=== PATIENT | male | born 1940 | race African-American/Black ===

== ENCOUNTER 2019-03-07 12:44 | Inpatient (IN) | payer OTHER ==
[~2019-03-07 12:44] MED LIST: ISOVUE-370 76%-LOCM 1 ML ONE
[2019-03-07 13:18] LABS: #Basophils 0.1 thou/uL (0.0-0.2); #Lymphocytes 0.6 thou/uL (1.20-3.40); #Monocytes 0.9 thou/uL (0.11-0.59); #Neutrophils 7.2 thou/uL (1.40-6.50); %Basophils 0.6 % (0.0-1.0); %Eosinophils 0.3 % (0.0-10.0); %Lymphocytes 7.1 % (21.0-51.0); Hemoglobin 9.2 g/dL (14.0-18.0); Mean Corpuscular HGB CONC 27.6 g/dL (32.0-36.0); Mean Corpuscular Hemoglobin 19.1 pg (27.0-31.0); Mean Platelet Volume 5.5 fL (7.4-10.4); Platelet Count 396 thou/uL (130-400); RBC Distribution Width 25.3 % (11.5-14.5); Red Blood Cell (RBC) Count 4.83 mill/uL (4.70-6.10); White Blood Cell (WBC) Count 8.8 thou/uL (4.8-10.8)
[2019-03-07] MEDS ORDERED: Ondansetron PF 4 MG/2 ML Vial ONE (13:21)
[2019-03-07] MEDS ORDERED: Fentanyl 100 MCG/2 ML VIAL ONE (13:21)
[2019-03-07 13:39] LABS: ALT (SGPT) 97 U/L (8-55); AST (SGOT) 53 U/L (5-34); Albumin 3.7 g/dL (3.4-4.8); Alkaline Phosphatase 135 U/L (40-150); Anion Gap 12 mmol/L (10-20); BUN (Urea Nitrogen) 17 mg/dL (8.4-25.7); Bilirubin, Total 0.4 mg/dL (0.2-1.2); Calc. Creatinine Clearance 0 mL/min (70-130); Carbon Dioxide 22 mmol/L (23-31); Chloride 107 mmol/L (98-107); Estimated GFR-MDRD Greater than 90; Globulin 3.3 g/dL (2.4-3.5); Glucose 192 mg/dL (83-110); Lipase 4 U/L (8-78); Potassium 4.4 mmol/L (3.5-5.1); Sodium 137 mmol/L (136-145)
--- NOTE | 2019-03-07 13:46 | RAD ---
PORTABLE CHEST: DATE: 03/07/2019. PROVIDED CLINICAL HISTORY: Hypoxia. FINDINGS: No comparisons. Cardiac silhouette appears enlarged which may be at least partially on the basis of portable technique. Vascular calcification involves the aortic arch. Left greater than right basila r pleural parenchymal opacity. Prominence of the pulmonary vasculature and pulmonary interstitium. No evidence for pneumothorax. IMPRESSION: Cardiomegaly and findings suggesting congestive failure. Bibasilar left greater than right pleural p arenchymal opacity may reflect effusions with adjacent atelectasis versus superimposed infection. Fo llowup is recommended. POS: OFF
[2019-03-07 13:50] LABS: Anisocytosis MODERATE=16-30 cells (100X) (0-5/hpf); Hypochromia MODERATE=16-30 cells (100X) (0-5/hpf); Large Platelets SLIGHT; MDiff Complete? YES; Microcytosis SLIGHT = 6-15 cells (100X) (0-5/hpf); Ovalocytes SLIGHT = 2-5 cells (100X) (0-1/hpf); Platelet Morphology Comment Appears Adequate; Polychromasia SLIGHT = 2-3 cells (100X) (0-2/hpf); Reflex for Review?? YES; Schistocytes SLIGHT = 2-5 cells (100X) (0-1/hpf); Spherocytes SLIGHT = 1-5 cells (100X) (None Seen); Target Cells SLIGHT = 2-5 cells (100X) (0-1/hpf)
--- NOTE | 2019-03-07 14:32 | CT ---
CT ABDOMEN AND PELVIS: HISTORY: Left-sided abdominal pain. FINDINGS: Contrast-enhanced CT images of the abdomen and pelvis were obtained after administration of IV contra st. Oral contrast was not given. Moderate-sized bilateral pleural effusions seen. No evidence of free intraperitoneal air is seen. There is a 1.5 cm hypodense area along the anterior aspect of the right hepatic lobe. A more subtle smaller lesion is also seen in the left hepatic lobe measuring approximately 8 mm. These may represe nt hepatic cysts or masses including metastatic disease. The gallbladder is unremarkable. There are numerous dilated loops of small bowel. Some of these have herniated into a large left ingu inal hernia extending into the scrotal sac. This results in proximal left-sided small bowel obstruct ion. Multilevel lumbar degenerative change is seen. IMPRESSION: 1. Large left inguinal hernia with small bowel herniation and obstruction. Surgical consultation is recommended. 2. Bilateral pleural effusions. 3. Hypodense area seen in the liver. These may represent hepatic cysts or masses. POS: [facility]
[2019-03-07] MEDS ORDERED: Morphine 4 MG/ML VIAL ONE (14:49)
[2019-03-07 16:43] LABS: Lactic Acid 2.1 mmol/L (0.5-2.2)
[2019-03-07] MEDS ORDERED: Furosemide 40 MG/4 ML VIAL ONE (19:15)
[2019-03-07] MEDS ORDERED: Ondansetron ODT 4 MG TAB PO PRN (22:20)
[2019-03-07] MEDS ORDERED: Ondansetron PF 4 MG/2 ML Vial IVP PRN (22:20)
[2019-03-07] MEDS ORDERED: Dextrose 5% in Water 1,000 ML IV PRN (22:22)
[2019-03-07] MEDS ORDERED: Dextrose 50% Abboject 50 ML SYRINGE SLOW IVP PRN (22:22)
[2019-03-07 22:47] VITALS: BMI 20.2
--- NOTE | 2019-03-08 02:43 | HP ---
PRIMARY CARE DOCTOR: The patient is in skilled nursing. CODE STATUS: Full code. TIME OF EVALUATION: 8:30 p.m. CHIEF COMPLAINT: Abdominal pain. HISTORY OF PRESENT ILLNESS: Information has been gathered from the nursing staff since the patient is noncooperative. He is confused. The patient was brought in to the hospital from correctional facility since the patient was having episodes of hypoxia, also having irregular heartbeats, no clear triggers, no alleviating factors. Reportedly, this was his first episode. Symptoms were moderate, gradual onset. Symptoms were getting worse with change in positions. REVIEW OF SYSTEMS: Unable to obtain. The patient is noncooperative to interview. KNOWN ALLERGIES: No known drug allergies. FAMILY HISTORY: Reviewed and noncontributory for current presentation. REPORTED MEDICATIONS: 1. Aspirin. 2. Iron. 3. Omeprazole. 4. Lisinopril. 5. Novolin. PHYSICAL EXAMINATION: VITAL SIGNS: On presentation, blood pressure 142/91 with heart rate 112, respiratory rate was 17, temperature 97.7, pain 8/10, oxygen saturation was 98% on room air. GENERAL APPEARANCE: The patient is alert, disoriented, not in acute distress. HEENT: Eyes, normal conjunctivae. Dry oral mucosa. Anicteric. No JVD. RESPIRATORY: The patient has decreased air entry. The patient has bilateral rales. No wheezing. CARDIOVASCULAR: Normal rate, regular rhythm. No murmurs. No gallop. Bilateral leg edema. ABDOMEN: Soft. Normal bowel sounds. MUSCULOSKELETAL: Baseline range of motion and strength. No tenderness. SKIN: Warm, intact. No pallor. No rash. No redness. Peripheral pulses are present. Capillary refill seems to be intact. NEUROLOGICAL: No evidence of any new focal weakness. Baseline speech. Cranial nerves seems to be intact. PSYCHIATRIC: The patient has good mood. No anxiety. Suboptimal judgment. IMAGING STUDIES: EKG was reviewed. The patient has sinus tachycardia with PACs , nonspecific T-wave abnormalities, ventricular rate 111, SC 144, QRS 88, QT corrected 454. LABORATORY DATA: Reviewed. White count 8.8, hemoglobin 9.2, platelet count 396. Sodium 137, potassium 4.4, chloride 107, carbon dioxide 22, anion gap 12, BUN 17 , creatinine 0.72, GFR greater than 90, glucose 192, calcium 9.0, total bilirubin 0.4, AST 53, ALT 97. Troponin was negative. B-type natriuretic peptide 1844. Serum total protein is 7.0, albumin 3.7, globulin 3.3, albumin to globulin ratio 1.1. Lipase 4. ASSESSMENT AND PLAN: The patient will be placed in the hospital with following medical problems: 1. Acute congestive heart failure exacerbation. The patient improved with Lasix , we will continue diuresis, we will reconcile home medications. We will adjust treatment as needed. 2. Microcytic anemia. The patient has hemoglobin 9.2 with MCV of 69 to be secondary to iron deficiency, might be a component of thalassemia given low MCV. The patient has hypochromia anisocytosis. We will start iron, this can be followed as outpatient. 3. Uncontrolled diabetes. The patient presented with glucose of 192, reconcile home medications, sliding scale for optimal control. 4. Large left inguinal hernia with small bowel herniation and obstruction. Surgery was consulted and was endorsed that Surgery might be willing to take him to OR in the morning. 5. Bilateral pleural effusion secondary to congestive heart failure. We will continue diuresis. 6. Acute hypoxic respiratory failure, likely secondary to congestive heart failure. We will treat underlying condition. 7. Deep venous thrombosis prophylaxis. Job ID: [id number] [facility]
[2019-03-08] MEDS: Furosemide 40 MG/4 ML VIAL SLOW IVP SCH ×2 (05:24→14:45)
[2019-03-08 06:39] LABS: Anion Gap 8 mmol/L (10-20); BUN (Urea Nitrogen) 11 mg/dL (8.4-25.7); Calc. Creatinine Clearance 97 mL/min (70-130); Calcium 8.6 mg/dL (7.8-10.44); Carbon Dioxide 30 mmol/L (23-31); Chloride 103 mmol/L (98-107); Estimated GFR-MDRD Greater than 90; Glucose 117 mg/dL (83-110); Magnesium 1.8 mg/dL (1.6-2.6); Potassium 4.1 mmol/L (3.5-5.1); Sodium 137 mmol/L (136-145)
[2019-03-08] MEDS: Ferrous Sulfate 325 MG TAB PO SCH ×2 (09:11→16:51)
[2019-03-08] MEDS: Lisinopril 20 MG TAB PO SCH (09:12)
[2019-03-08] MEDS: Aspirin 81 mg Enteric Coated Tablet PO SCH (09:12)
[2019-03-08] MEDS: NPH, Human Insulin Isophane 300 UNIT/3 ML VIAL SC SCH ×2 (09:40→21:18)
[2019-03-08] MEDS: Heparin 5,000 UNITS/ML VIAL SC SCH ×3 (10:38→21:18)
[2019-03-08 11:23] LABS: INR-International Normal Ratio 1.3; PTT 29.1 SEC (22.9-36.1); Prothrombin Time 15.8 SEC (12.0-14.7)
--- NOTE | 2019-03-08 11:51 | CON ---
DATE OF CONSULTATION: HISTORY OF PRESENT ILLNESS: The patient is a 78-year-old man, who is currently incarcerated in one of the correctional facilities in our area, who reportedly had complained of some abdominal pain, that he has taken to the [facility]. He underwent evaluation and was noted to have irregular heart beat and some hypoxia. He was transferred to our facility where he underwent evaluation here. It was discovered that the patient was having CHF exacerbation, which he had no prior history of and also was noted on a CT scan to have a large left inguinal hernia, which we were asked to see in consultation. The patient had a known hernia since what he says greater than 5 years and according to his medical records, was noted in 2011. The patient denies any nausea, vomiting, or diarrhea. He states that his bowel habits are regular. He has a bowel movement every "few days" and his last one was again "a few days ago." The patient denies any urinary issues. His chief complaint was intermittent abdominal pain. The patient is not the best historian and a lot of his history is gleaned from his records from the care home facility. ALLERGIES: NONE. CURRENT MEDICATIONS: Aspirin, iron supplement, omeprazole, lisinopril, and Novolin. PAST MEDICAL HISTORY: Hypertension, type 2 diabetes, hep C, and anemia. PAST SURGICAL HISTORY: Hernia repair. SOCIAL HISTORY: The patient is currently an inmate at one of the care home facilities locally. He denies drug, tobacco, or alcohol use. REVIEW OF SYSTEMS: A 10-point review of systems is negative as otherwise stated. Of note, this patient was examined last night in the emergency department and again was seen this morning in consultation and this morning, he denies having any abdominal pain to include yesterday. PHYSICAL EXAMINATION: VITAL SIGNS: Temperature is 97.7, heart rate 85, blood pressure 124/76, respirations are 18, and oxygen saturation is 99% on 2 L via nasal cannula. GENERAL: The patient is resting comfortably in bed. He is awake, alert, and being cooperative. HEENT: Head is normocephalic and atraumatic. Eyes, extraocular motion intact. PERRLA bilaterally. The patient does have some scleral icterus. Oropharynx is clear. Nose is atraumatic without discharge. Ears are atraumatic without discharge. NECK: Nontender. Trachea is midline. No JVD. No lymphadenopathy is noted. CHEST: Shows equal rise and fall of the chest with scattered rhonchi and occasional wheezes. ABDOMEN: Soft. Flat with hypoactive bowel sounds. Groin, a large obvious left inguinal hernia is noted. It does appear to slide, but is definitely not completely reducible. The patient did not have pain with this manipulation. BACK: Atraumatic and nontender. LABORATORY FINDINGS: White blood cell count 8.8, hemoglobin 9.2, hematocrit 33.3, and platelets are 396. Sodium 137, potassium 4.1, chloride 103, CO2 of 30, BUN 11, creatinine 0.69, glucose 117, and magnesium 1.8. BNP 1844. Troponin less than 0.010. RADIOGRAPHIC FINDINGS: 1. AP chest x-ray shows cardiomegaly and findings suggestive of congestive heart failure. The bibasilar left greater than right pleural parenchymal opacity may reflect effusion with adjacent atelectasis versus superimposed infection. CT of the abdomen and pelvis with IV contrast, one large left inguinal hernia with small-bowel herniation and obstruction. 2. Bilateral pleural effusions. 3. Hypodense area seen in the liver. This may represent hepatic cyst or mass. ASSESSMENT AND PLAN: 1. Congestive heart failure exacerbation. 2. Left inguinal hernia with suspected obstruction. PLAN: Plan will be to have medical management per the primary team and we will order a small bowel follow-through to evaluate for obstruction of his hernia. At this time, the patient is not a good candidate due to his anasarca and CHF exacerbation. We will continue to follow the patient and re-evaluate him after his small bowel follow-through. The patient was examined this morning with Dr. Ulrich on the telemetry floor. Job ID: [id number]
--- NOTE | 2019-03-08 12:04 | RAD ---
Small bowel follow-through HISTORY: Abdominal pain. Hernia. Bowel obstruction. FINDINGS: [employer] exam shows a large amount of stool throughout the colon. Prominent degenerative maldonado es lumbar spine. Early images show contrast within the nondilated proximal small bowel and within the stomach. At 1 ho ur, contrast has filled the nondilated small bowel. Contrast is apparent within the right colon extending to the hepatic flexure. IMPRESSION: No evidence of bowel obstruction.
--- NOTE | 2019-03-08 13:58 | PRG ---
DATE OF SERVICE: SUBJECTIVE: The patient is seen and examined at the bedside. He does not have much complaints to offer. He wants to eat. He does not have any abdominal pain. He is not short of breath. OBJECTIVE: VITAL SIGNS: Blood pressure is 137/77, pulse is 85, temperature is 97.5, respirations 18, O2 saturation is 100% on room air. HEENT: His head is atraumatic and normocephalic. Eyes are PERRLA. Sclerae are nonicteric. Oral mucosa is moist. NECK: Supple. LUNGS: Clear. HEART: S1 and S2. Somewhat irregular. No S3. No S4. ABDOMEN: Soft, nontender. Bowel sounds present. He has big scrotum, enlarged. EXTREMITIES: He has upper extremity in plastic handcuffs. He has 2+ peripheral edema on both lower extremities and he has changes of both feet, which look like chronic tinea. NEUROLOGIC: He is alert and oriented x4. There are no any motor deficits. Cranial nerves are intact. LABORATORY DATA: Showed INR of 1.3, PT of 15.8, PT 29.1. Normal electrolytes. CO2 of 8, BUN 11, creatinine 0.69, glucose 117, calcium 8.6, magnesium 1.8. IMPRESSION: 1. Acute congestive heart failure exacerbation. The patient is on Lasix and GARY inhibitor. Cardiology consultation is still pending. Echocardiogram is pending. 2. Uncontrolled diabetes mellitus. We will try to maximize the treatment. 3. Large left inguinal hiatal hernia with a normal small bowel series, no obstruction. Surgery is postponed for the time when he is not in congestive heart failure. 4. Bilateral pleural effusion secondary to congestive heart failure, on diuretics. 5. Acute hypoxic respiratory failure, improved. 6. Microcytic anemia. We will do iron studies and guaiac on his stool. Job ID: [id number]
[2019-03-08 14:11] LABS: Iron Binding Capacity, Total 301 mcg/dL (261-462)
[2019-03-08 14:12] LABS: Iron Less than 8 ug/dL (65-175)
[2019-03-08] MEDS: HumaLOG 300 UNITS/3 ML VIAL SC PRN (17:16)
--- NOTE | 2019-03-08 17:33 | CON ---
DATE OF CONSULTATION: 03/08/2019 REASON FOR CONSULTATION: Heart failure. HISTORY OF PRESENT ILLNESS: Mr. Moeller is a very pleasant 78-year-old gentleman, who is an inmate, who comes to the hospital for being altered and having episodes of irregular heartbeats and shortness of breath. He was admitted and there was a concern for abdominal obstruction, but this was ruled out with a follow-through, and he was started on IV Lasix as his clinical scenario seemed to be heart failure. He was given Lasix and felt much better. Echocardiogram was done and it showed an EF of 15% to 20%, so Cardiology has been consulted for this. On my evaluation, Mr. Moeller denies any chest pain, tightness, or pressure. He tells me he has never been told he has a weak heart in the past. He feels much better and is able to lay flat now. PAST MEDICAL HISTORY: 1. Hypertension. 2. Type 2 diabetes. 3. Hepatitis C. 4. Chronic anemia. OUTPATIENT MEDICATIONS: 1. Omeprazole 40 mg b.i.d. 2. Novolin R. 3. NPH insulin. 4. Lisinopril 20 mg a day. 5. Ferrous sulfate 325 mg b.i.d. 6. Aspirin 81 a day. ALLERGIES: NO KNOWN DRUG ALLERGIES. SOCIAL HISTORY: Currently, an inmate. No alcohol, tobacco, or drugs. FAMILY HISTORY: Noncontributory. REVIEW OF SYSTEMS: A 12-point review of systems was done and was found to be negative unless stated in the history of present illness. PHYSICAL EXAMINATION: VITAL SIGNS: Temperature 97.5, pulse 84, respiratory rate 16, saturating 97% on room air, and blood pressure 140/85. GENERAL: Awake, alert, and oriented x3. No distress. HEENT: Normocephalic and atraumatic. NECK: Supple. LUNGS: Clear. CARDIOVASCULAR: S1 and S2. No S3 or S4. No murmurs. ABDOMEN: Soft. Positive bowel sounds. EXTREMITIES: 1+ edema. SKIN: Warm and dry. LABORATORY DATA: Laboratory work was reviewed. CBC with a white count of 8.8, hemoglobin of 9.2, hematocrit of 33, and platelet count of 396. Coags were normal. Chemistries with a BUN of 11, creatinine 0.69, GFR of greater than 90. Lactic acid was normal. BNP was 1844. IMAGING STUDIES: Echocardiogram was reviewed, it showed an EF of 15% to 20%, grade 2/3 diastolic dysfunction, and global hypokinesis. ASSESSMENT: 1. New-onset dilated cardiomyopathy. 2. Acute on chronic systolic heart failure. PLAN: 1. We will need further risk stratification with heart catheterization for ischemic cardiomyopathy. We will plan on doing this tomorrow. We spoke about the risks and benefits of the procedure. Risks included, but not limited to stroke, [place], , bleeding, need for blood transfusion, limb loss, organ loss, need for emergent bypass surgery. He understands and verbalized understanding and agrees to proceed. 2. We will get a LifeVest before discharge. 3. Start on beta kathy, already on an GARY inhibitor. 4. Further recommendations per results of coronary angiogram. We will follow. Job ID: [id number]
[2019-03-08] MEDS: Senokot S 8.6-50 MG TAB PO SCH (21:17)
[2019-03-09] MEDS: Furosemide 40 MG/4 ML VIAL SLOW IVP SCH ×2 (05:20→14:49)
[2019-03-09] MEDS: Lisinopril 20 MG TAB PO SCH (08:56)
[2019-03-09] MEDS: Heparin 5,000 UNITS/ML VIAL SC SCH ×3 (08:56→21:20)
[2019-03-09] MEDS: Senokot S 8.6-50 MG TAB PO SCH ×2 (08:56→21:20)
[2019-03-09] MEDS: Aspirin 81 mg Enteric Coated Tablet PO SCH (08:56)
[2019-03-09] MEDS: Ferrous Sulfate 325 MG TAB PO SCH ×2 (08:56→17:27)
[2019-03-09] MEDS: Polyethylene Glycol 3350 17 GM Packet PO SCH (08:57)
[2019-03-09] MEDS: NPH, Human Insulin Isophane 300 UNIT/3 ML VIAL SC SCH ×2 (08:57→21:20)
[2019-03-09] MEDS ORDERED: Iopamidol 370 76% 100 ML VIAL ONE (10:28)
--- NOTE | 2019-03-09 14:11 | PRG ---
DATE OF SERVICE: 03/09/2019 The patient was seen and evaluated by myself this morning. Small bowel follow-through completed yesterday demonstrated no obstruction. The patient is having multiple bowel movements since that time. There is no concern for a small-bowel obstruction at this time. There is no surgical indicaion. Surgery will sign off at this time. Please re-consult Dr. Ulrich with any questions or concerns. The patient was evaluated by myself and I did discuss the patient with Dr. Ulrich today. Job ID: [id number] [facility]
--- NOTE | 2019-03-09 15:37 | PRG ---
DATE OF SERVICE: 03/09/2019 SUBJECTIVE: The patient is seen and examined at the bedside. He just came back from cardiac catheterization procedure. He does not have much complaints to offer. He just ate his lunch. OBJECTIVE: VITAL SIGNS: Blood pressure is 119/77, pulse is 75, temperature is 97.7, respiratory rate 14, O2 saturation is 97% on room air. HEENT: His head is atraumatic and normocephalic. Sclerae are nonicteric. Pupils are responding to light properly. Oral mucosa is moist. NECK: Supple. LUNGS: Breath sounds diminished at both bases with few crackles bilaterally. No wheezing. HEART: S1, S2, somewhat distant. No S3. No S4. ABDOMEN: Soft, nontender, nondistended. EXTREMITIES: Upper and lower extremity in plastic cuffs. He has 2+ peripheral edema on both lower extremities. NEUROLOGICAL: He is alert and oriented x4. There are no any motor deficits. Cranial nerves are intact. LABORATORY DATA: Labs showed glycemia is ranging from 79 to 201. INR 1.3. PT 15.8, APTT 29.1. Sodium of 137, potassium 4.1, chloride 103, CO2 of 30, BUN 11, creatinine 0.69. Echocardiogram showed LVEF of 15% to 20%. Grade 2/3 diastolic dysfunction. Global hypokinesia, dilated RV with reduced RV systolic function. Severely dilated left atrium, markedly enlarged right atrium. Moderate mitral regurgitation, moderate tricuspid regurgitation, elevated right ventricular systolic pressure estimated at 58 mmHg. Moderate-size pleural effusion. IMPRESSION: 1. Acute congestive heart failure exacerbation. Left ventricular ejection fraction low on his echo. He just came back from cardiac cath. We are waiting for final report. 2. Uncontrolled diabetes mellitus. 3. Large left hiatal hernia with a normal small bowel series suggestive of no obstruction and no surgical intervention recommended per surgical team at this point. 4. Bilateral pleural effusion secondary to congestive heart failure, on diuretics. 5. Acute hypoxemic respiratory failure, improved. 6. Microcytic anemia, iron deficiency. Awaiting for guaiac stool. We will obtain GI consult for possible scoping and diuretics twice a day. Continue GARY inhibitor. Continue beta-kathy. Continue insulin, Lantus, NPH, and sliding scale, and aspirin 81 mg. Job ID: [id number]
[2019-03-10 05:25] LABS: Anion Gap 13 mmol/L (10-20); BUN (Urea Nitrogen) 18 mg/dL (8.4-25.7); Calc. Creatinine Clearance 100 mL/min (70-130); Calcium 8.5 mg/dL (7.8-10.44); Carbon Dioxide 26 mmol/L (23-31); Chloride 101 mmol/L (98-107); Estimated GFR-MDRD Greater than 90; Glucose 95 mg/dL (83-110); Potassium 3.6 mmol/L (3.5-5.1); Sodium 136 mmol/L (136-145)
[2019-03-10] MEDS: Furosemide 40 MG/4 ML VIAL SLOW IVP SCH ×2 (05:36→16:02)
[2019-03-10 05:41] LABS: Anisocytosis MODERATE=16-30 cells (100X) (0-5/hpf); Band 3 % (5-11); Eosinophils 1 % (0-10); Hemoglobin 9.3 g/dL (14.0-18.0); Lymphocytes 16 % (21-51); MDiff Complete? YES; Mean Corpuscular HGB CONC 27.4 g/dL (32.0-36.0); Mean Corpuscular Hemoglobin 18.7 pg (27.0-31.0); Mean Corpuscular Volume 68.2 fL (78.0-98.0); Mean Platelet Volume 7.2 fL (7.4-10.4); Microcytosis SLIGHT = 6-15 cells (100X) (0-5/hpf); Monocytes 15 % (0-10); Neutrophil 65 % (42-75); Platelet Count 181 thou/uL (130-400); RBC Distribution Width 25.5 % (11.5-14.5); Red Blood Cell (RBC) Count 4.96 mill/uL (4.70-6.10)
[2019-03-10 05:42] LABS: Hypochromia MODERATE=16-30 cells (100X) (0-5/hpf); Large Platelets SLIGHT; Platelet Morphology Comment Appears Adequate; Polychromasia SLIGHT = 2-3 cells (100X) (0-2/hpf); Schistocytes SLIGHT = 2-5 cells (100X) (0-1/hpf); Spherocytes SLIGHT = 1-5 cells (100X) (None Seen); Target Cells SLIGHT = 2-5 cells (100X) (0-1/hpf)
[2019-03-10] MEDS: Lisinopril 20 MG TAB PO SCH (08:42)
[2019-03-10] MEDS: Ferrous Sulfate 325 MG TAB PO SCH ×2 (08:42→16:03)
[2019-03-10] MEDS: Senokot S 8.6-50 MG TAB PO SCH ×2 (08:42→21:25)
[2019-03-10] MEDS: Heparin 5,000 UNITS/ML VIAL SC SCH ×3 (08:42→21:24)
[2019-03-10] MEDS: Aspirin 81 mg Enteric Coated Tablet PO SCH (08:42)
[2019-03-10] MEDS: Polyethylene Glycol 3350 17 GM Packet PO SCH (08:44)
[2019-03-10] MEDS: NPH, Human Insulin Isophane 300 UNIT/3 ML VIAL SC SCH ×2 (08:44→21:25)
[2019-03-10] MEDS: HumaLOG 300 UNITS/3 ML VIAL SC PRN (12:54)
--- NOTE | 2019-03-10 13:12 | PRG ---
DATE OF SERVICE: 03/10/2019 SUBJECTIVE: The patient is seen and examined at the bedside. Two guards present, one of them is in the room and one is in front of the room. The patient feels tired and he could not sleep last night and he is trying to catch up on his sleep this morning. OBJECTIVE: VITAL SIGNS: Blood pressure is 127/82, temperature is 97.4, pulse is 98, respirations 14, and O2 saturation is 100% on room air. GENERAL: He follows my commands. HEENT: His head is atraumatic. Sclerae are nonicteric. Oral mucosa is moist. NECK: Supple. LUNGS: Breath sounds diminished at both bases with some dullness on percussion on both bases. No wheezing. HEART: S1 and S2, somewhat distant. No S3. No S4. ABDOMEN: Soft, nontender, and nondistended. EXTREMITIES: Approximately 2+ peripheral edema around both ankles. He has quite diffuse changes on his both feet, which looks chronic. NEUROLOGICAL: He is alert and oriented x4. There are no any motor deficits. LABORATORY DATA: White count of 9.0, hemoglobin is 9.3, hematocrit 33.8, and platelet count is 181,000. Normal electrolytes, normal creatinine, glycemia is ranging from 79 to 276, and calcium is 8.5. Microbiology, ROOPA preparation on skin of his feet came back negative for fungal infection. IMPRESSION AND PLAN: 1. Acute congestive heart failure exacerbation with low left ventricular ejection fraction, status post cardiac cath. We are waiting for the final report. 2. Uncontrolled diabetes mellitus. He is on 6 units of NPH twice a day. I will increase morning dose to 10 units and continue 6 units in the evening. 3. Large left inguinal hernia without obstruction. 4. Bilateral pleural effusions secondary to congestive heart failure. 5. Acute hypoxemic respiratory failure, improved. 6. Microcytic anemia, iron deficiency with negative guaiac stool. GI consult placed. For now, we will continue his current regimen with GARY inhibitor, beta-kathy. Job ID: [id number]
--- NOTE | 2019-03-10 16:34 | CON ---
DATE OF CONSULTATION: 03/10/2019 REASON FOR CONSULTATION: Iron-deficiency anemia. HISTORY OF PRESENT ILLNESS: Tony Moeller is a 78-year-old gentleman, an inmate, who was admitted to the hospital 3 days ago with altered mental status, hypoxia, dyspnea, and irregular heartbeat. Upon presentation, there was also concern for possible incarceration of a long-standing left inguinal hernia. He was evaluated by surgery and had normal small bowel follow-through and hernia was not felt to be in danger of incarceration. He had some cardiac workup including echocardiogram and this demonstrated significant dilated cardiomyopathy with ejection fraction only 15% to 20% and global hypokinesis. Cardiology saw the patient and performed a cardiac catheterization. He does not have significant coronary artery disease, so this is classified as a nonischemic cardiomyopathy. Arrangements are being made for the patient to have a LifeVest. He has received IV Lasix. During evaluation, it is also apparent that the patient is anemic. It is unclear how chronic this is. The patient himself denies any knowledge of a history of anemia. Hemoglobin is stable at 9.3, and it is microcytic with MCV of 68.2. Iron studies are low with ferritin only 10.5. FOBT is negative. The patient states that he has no gastrointestinal symptoms at all. He denies any heartburn, abdominal pain, nausea, vomiting, diarrhea, constipation, melena, or hematochezia. He denies any overt bleeding from anywhere. No epistaxis. No gross hematuria. He is not on any special diet. He does not think he has ever undergone EGD. He does think he had a colonoscopy that was normal and it would have been several years ago. He is not interested in undergoing any endoscopic procedures and is wanting to minimize further interventions and testing if possible. 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 ALLERGIES: NO KNOWN DRUG ALLERGIES. OUTPATIENT MEDICATIONS: 1. Omeprazole 40 mg b.i.d. 2. Novolin R. 3. NPH insulin. 4. Lisinopril 20 mg daily. 5. Ferrous sulfate 325 mg b.i.d. 6. Aspirin 81 mg daily. SOCIAL HISTORY: Currently, an inmate. No alcohol, tobacco, or drug use. FAMILY HISTORY: Noncontributory. No known family history of GI malignancy. REVIEW OF SYSTEMS: Full review of systems including constitutional, head, eyes, ears, nose, throat, GI, , cardiovascular, respiratory, musculoskeletal, and neurologic systems are negative except as noted in the HPI. PHYSICAL EXAMINATION: VITAL SIGNS: Temperature 98.3, pulse 93, blood pressure 120/64, and 97% oxygen saturation on room air. GENERAL: A 78-year-old man, lying in bed comfortably, in no distress. MENTAL: He is alert and oriented. He is able to answer detailed questions about current symptoms. SKIN: He is a bit pale. No jaundice. No rashes were palpable. EYES: No scleral icterus. Extraocular movements intact. ENT: Mucous membranes moist. No oral lesions. LYMPH: No submandibular supraclavicular lymphadenopathy. Thyroid nontender to palpation. HEART: Regular rate and rhythm. LUNGS: Clear to auscultation bilaterally. ABDOMEN: Flat. Bowel sounds present. Soft and nontender to palpation throughout. EXTREMITIES: No peripheral edema. VESSELS: Radial pulses 2+ bilaterally. NEUROLOGIC: Cranial nerves 2 through 12 intact bilaterally. No focal deficits. LABORATORY STUDIES: Hemoglobin 9.3, WBC 9.0, platelets 181, MCV is low at 68.2. INR is 1.3. Sodium 136, potassium 3.6, BUN 18, creatinine 0.67, glucose 260, calcium 8.5, iron less than 8, TIBC 301, ferritin only 10.5. BNP elevated to 1844.9. Total bilirubin 0.4, alkaline phosphatase 135, AST 53, ALT 97, lipase 4, and albumin 3.7. IMAGING STUDIES: Echocardiogram demonstrates global hypokinesis and ejection fraction only 15% to 20%. Coronary angiogram shows no significant coronary artery disease. On 03/08/2019, small bowel follow-through showed no evidence of any bowel obstruction. CT of the abdomen and pelvis on admission 03/07/2019, showed normal gallbladder. There are a couple of hypodense areas in the liver measuring up to 1.5 cm representing either hepatic cyst or possibly masses including metastatic disease. Gallbladder is unremarkable. Some loops of small bowel within left inguinal hernia sac extending into the scrotum. ASSESSMENT AND PLAN: 1. Iron-deficiency anemia. 2. Indeterminate hepatic lesions, possibly representing cyst versus solid tumors including possibly malignant disease. 3. Severe nonischemic cardiomyopathy with ejection fraction 15% to 20%. I had a long discussion with the patient regarding his iron-deficiency anemia. This is concerning for possible occult gastrointestinal bleeding lesion. I note his FOBT is negative, but this does not rule out an occult gastrointestinal bleeding lesion. The patient would be high risk for any endoscopic procedure with his severe congestive heart failure, but I would be willing to consider esophagogastroduodenoscopy and colonoscopy if the patient wanted to proceed. The patient expresses understanding of the risks and benefits either way, and he strongly declines any endoscopic investigation. He is wanting to minimize any further testing. He expresses understanding of the risk of missing significant pathology. I would honor his wishes in this regard. I did tell him that if he changes his mind, then we can be reconsulted for consideration of esophagogastroduodenoscopy and colonoscopy. I would need formal cardiac clearance prior to proceeding if that were the case. GI will sign off at this time given the patient's wishes, but please call back anytime with questions or concerns. Job ID: [id number]
[2019-03-11 05:59] LABS: Anion Gap 8 mmol/L (10-20); BUN (Urea Nitrogen) 18 mg/dL (8.4-25.7); Calc. Creatinine Clearance 104 mL/min (70-130); Calcium 8.5 mg/dL (7.8-10.44); Carbon Dioxide 32 mmol/L (23-31); Chloride 99 mmol/L (98-107); Estimated GFR-MDRD Greater than 90; Potassium 3.1 mmol/L (3.5-5.1); Sodium 136 mmol/L (136-145)
[2019-03-11 06:04] LABS: Glucose 55 mg/dL (83-110)
[2019-03-11] MEDS: Furosemide 40 MG/4 ML VIAL SLOW IVP SCH ×2 (06:17→13:30)
[2019-03-11] MEDS: Ferrous Sulfate 325 MG TAB PO SCH ×2 (08:29→18:16)
[2019-03-11] MEDS: Lisinopril 20 MG TAB PO SCH (08:29)
[2019-03-11] MEDS: Aspirin 81 mg Enteric Coated Tablet PO SCH (08:32)
[2019-03-11] MEDS: NPH, Human Insulin Isophane 300 UNIT/3 ML VIAL SC SCH ×2 (08:33→21:19)
[2019-03-11] MEDS: Polyethylene Glycol 3350 17 GM Packet PO SCH (08:34)
[2019-03-11] MEDS: Senokot S 8.6-50 MG TAB PO SCH ×2 (08:35→21:18)
[2019-03-11] MEDS: Heparin 5,000 UNITS/ML VIAL SC SCH ×3 (08:39→21:24)
[2019-03-11 09:05] LABS: #Eosinphils 0.1 thou/uL (0.0-0.7); #Neutrophils 5.2 thou/uL (1.40-6.50); %Basophils 0.3 % (0.0-1.0); %Eosinophils 1.5 % (0.0-10.0); %Lymphocytes 13.1 % (21.0-51.0); %Monocytes 13.6 % (0.0-10.0); %Neutrophils 71.5 % (42.0-75.0); Hemoglobin 8.5 g/dL (14.0-18.0); Hypochromia MODERATE=16-30 cells (100X) (0-5/hpf); MDiff Complete? YES; Mean Corpuscular HGB CONC 28.2 g/dL (32.0-36.0); Mean Corpuscular Hemoglobin 18.9 pg (27.0-31.0); Mean Corpuscular Volume 67.2 fL (78.0-98.0); Mean Platelet Volume 6.9 fL (7.4-10.4); Platelet Count 288 thou/uL (130-400); Poikilocytosis SLIGHT = 6-15 cells (100X) (0-5/hpf); Polychromasia SLIGHT = 2-3 cells (100X) (0-2/hpf); RBC Distribution Width 25.5 % (11.5-14.5); Red Blood Cell (RBC) Count 4.47 mill/uL (4.70-6.10); White Blood Cell (WBC) Count 7.3 thou/uL (4.8-10.8)
[2019-03-11 11:07] LABS: Bilirubin Negative (Negative); Blood, Urine Negative (Negative); Clarity CLEAR (Clear); Glucose, Urine (Dipstick) 500 mg/dL (Negative); Leukocyte Negative (Negative); Nitrite Negative (Negative); Protein, Urine (Dipstick) Negative (Neg-Trace); Specific Gravity, Urine 1.013 (1.002-1.036); pH, Urine 6.5 (5.0-9.0)
[2019-03-11 11:12] LABS: Bacteria/HPF 4+ HPF (None Seen); Hyaline Casts/LPF 0-3 HYALINE CAST LPF (0-3 Hyaline); RBC/HPF 0-3 HPF (0-3); Squamous Epithelial None Seen HPF (0-3); WBC/HPF 0-3 HPF (0-3)
[2019-03-11 11:14] LABS: Urine Culture Reflex Yes Yes
[2019-03-11] MEDS ORDERED: Morphine 4 MG/ML VIAL SLOW IVP SCH (11:30)
[2019-03-11] MEDS ORDERED: Glycopyrrolate 0.2 MG/ML 5 ML SYRINGE ONE (12:13)
[2019-03-11] MEDS ORDERED: PHENYLEPHRINE-NS 100 MCG/ML 10 ML SYRINGE ONE (12:13)
[2019-03-11] MEDS ORDERED: Rocuronium Bromide 10 MG/ML (10ML VIAL) ONE (12:13)
[2019-03-11] MEDS ORDERED: PROPOFOL 200 MG/20 ML VIAL ONE (12:13)
[2019-03-11] MEDS ORDERED: Lidocaine 1% PF 5 ML VIAL ONE (12:13)
[2019-03-11] MEDS ORDERED: Succinylcholine Chloride 20 MG/ML 10 ml SYRINGE FS ONE (12:13)
--- NOTE | 2019-03-11 12:43 | PRG ---
DATE OF SERVICE: 03/11/2019 SUBJECTIVE: I was called back to see Mr. Moeller this morning because of acute onset abdominal pain. The patient reports that the pain is throughout his entire abdomen. It is really unable to localize it for me. This is associated with nausea. He did have one episode of nonbloody emesis already. I do note he has this large left inguinal hernia which persists and I am unable to reduce in any way. OBJECTIVE: VITAL SIGNS: Temperature 98.1, pulse 87, blood pressure 136/66, 100% oxygen saturation on room air. GENERAL: A 78-year-old man, lying in bed, in moderate distress from pain and nausea. HEART: Regular rate and rhythm. LUNGS: Clear to auscultation bilaterally. ABDOMEN: The abdomen is nondistended, but it is tense. He endorses diffuse tenderness to palpation. Bowel sounds are hypoactive. He has a large left inguinal hernia which is not reducible. EXTREMITIES: No peripheral edema. LABORATORY STUDIES: WBC 7.3, hemoglobin 8.5, platelets 288. INR 1.3. Sodium 136, potassium 3.1, BUN 18, creatinine 0.64. ASSESSMENT/PLAN: 1. Acute generalized abdominal pain this morning. 2. Large left-sided inguinal hernia. Note on patient's presentation a few days ago there was concern for small bowel obstruction due to his large left inguinal hernia. This was apparent on initial CT imaging on 03/07/2018. By the time of small bowel follow-through 03/08/2019, there was no further evidence of obstruction. However, I think his pain today most likely represents repeat incarceration and obstruction. I will call the surgical team and requests them to re-evaluate. Obviously, the patient is not a great operative candidate. 3. Iron deficiency anemia. The patient strongly declined any endoscopic investigation with regard to his iron deficiency anemia. Again, the patient is not a great candidate for any procedures. The plan had been to transfer him to [facility] for LifeVest, and I would still prefer this to be accomplished prior to any plan for endoscopy. Hemoglobin is stable. Job ID: [id number]
--- NOTE | 2019-03-11 14:00 | PRG ---
DATE OF SERVICE: 03/11/2019 SUBJECTIVE: Mr. Moeller is a 78-year-old man, an inmate of a correctional facility. The patient was admitted with acute congestive heart failure and vague abdominal pain associated with a longstanding left inguinal hernia for over five years duration. The congestive heart failure has been successfully treated. The patient ultimately began to have bowel movement. Small bowel followthrough revealed no small bowel obstruction. Herniorrhaphy was not recommended at that time. This morning; however, the patient is complaining of severe left groin pain associated with a large nonreducible bulge down to his scrotum. He is complaining of some nausea with some nonbilious emesis x2. OBJECTIVE: VITAL SIGNS: Today includes blood pressure 177/74, pulse 106, respiratory rate is 20, temperature 97.7 degrees Fahrenheit, and oxygen saturation 97% on room air. HEART: Reveals irregular rate and irregular rhythm. LUNGS: Clear to auscultation bilaterally. Breathing, regular and nonlabored. ABDOMEN: Soft and nondistended. He has a large nonreducible bulge to his left scrotum consistent with an incarcerated left inguinal hernia. NEUROLOGIC: Reveals no focal deficits present. LABORATORY FINDINGS: Today include a CBC with 7300 white blood cells, hemoglobin and hematocrit 8.5 and 30.0 respectively. Platelet count is 288,000. Metabolic profile; sodium 136, potassium 3.1, chloride is 99, bicarb 32, BUN 18, creatinine 0.64, and glucose is 146. IMPRESSION: Incarcerated left inguinal hernia. PLAN: Left inguinal herniorrhaphy with mesh. Above findings and plan discussed with the patient, who indicates understanding of information given. We will obtain consent for surgical intervention from the correctional facility. Job ID: [id number]
[2019-03-11 14:09] LABS: INR-International Normal Ratio 1.2; PTT 33.4 SEC (22.9-36.1); Prothrombin Time 15.1 SEC (12.0-14.7)
[2019-03-11] MEDS ORDERED: Potassium Chloride 40 MEQ in Sodium Chloride 0.9% 250 ML 250 ML IVPB SCH (15:00)
--- NOTE | 2019-03-11 15:45 | PRG ---
DATE OF SERVICE: 03/11/2019 SUBJECTIVE: The patient is seen and examined at the bedside. He complains about abdominal pain, quite severe all of a sudden, but apparently he was doing quite well this morning. OBJECTIVE: VITAL SIGNS: Blood pressure is 177/74, pulse is 106, temperature is 97.7, respiratory rate is 20, and O2 saturation is 97% on room air. GENERAL: He is in quite severe pain, it is in the abdomen. His eyes are not showing any abnormalities. HEENT: His sclerae are nonicteric. Oral mucosa is moist. NECK: Supple. LUNGS: Clear. HEART: S1 and S2, somewhat tachycardic. No S3. No S4. ABDOMEN: Tender. The pain is more localized to the left side of the abdomen and most likely this is incarcerated hernia. EXTREMITIES: No clubbing, cyanosis, or edema. LABORATORY DATA: White count of 7.3, hemoglobin of 8.5, hematocrit 67.2, and platelet count is 288,000. Sodium of 136, potassium 3.1, chloride 99, CO2 of 32, BUN 18, creatinine 0.64, and glucose 55. IMPRESSION: 1. Abdominal pain, most likely incarcerated hernia. Apparently, Dr. Segovia talked already to Dr. Ulrich and the patient is going for surgery very soon. We will try to use some morphine to relieve the pain for now, 4 mg IV push. 2. Hypokalemia. We will replace with two runs of KCl. 3. Acute congestive heart failure exacerbation with lower left ventricular ejection fraction, status post cardiac catheterization. Apparently, there were no blockages in his coronary artery disease, so this is nonischemic cardiomyopathy. 4. Uncontrolled diabetes mellitus. The patient was hypoglycemic. This morning, we will have to watch this closely since we went up on his long-acting insulin recently. 5. Bilateral pleural effusion secondary to his congestive heart failure. 6. Acute hypoxemic respiratory failure, improved. 7. Microcytic anemia with iron deficiency and positive guaiac stool. DISCUSSION: The patient is going for surgery by General Surgery for his most likely incarcerated inguinal hernia. We will replace his potassium with two runs of KCl 10 mEq each. We just learned that he cannot have LifeVest through our system and he needs to be transferred to [facility] in [place] or [place], so this transfer has to be postponed until his surgery is done and he is ready to be transferred. He is more stable. Also, he will need GI scoping since he has microcytic anemia and guaiac-positive stools. Job ID: [id number]
[2019-03-11] MEDS ORDERED: Fentanyl 100 MCG/2 ML VIAL ONE (15:54)
[2019-03-11] MEDS ORDERED: Midazolam HCl 2 mg/2 ml Vial ONE (15:54)
[2019-03-11] MEDS ORDERED: Bupivacaine/Epinephrine 0.25% 30 ML VIAL ONE (16:00)
[2019-03-11] MEDS ORDERED: cefOXitin 2 GM VIAL ONE (16:09)
[2019-03-11] MEDS ORDERED: Sodium Chloride 0.9% 100 ML ONE (16:09)
[2019-03-11] MEDS ORDERED: Ondansetron HCl/PF 4 MG/2 ML Vial IVP PRN (18:14)
[2019-03-11] MEDS ORDERED: Promethazine HCl 25 MG/ML VIAL SLOW IVP PRN (18:14)
[2019-03-11] MEDS ORDERED: Promethazine HCl 25 MG/ML VIAL IM PRN (18:14)
[2019-03-11] MEDS ORDERED: traMADol HCl 50 MG TAB PO PRN (18:16)
[2019-03-11] MEDS: traMADol HCl 50 MG TAB PO PRN (21:18)
[2019-03-11] MEDS: CEFAZOLIN 2 GM in Premix Bag 1 BAG IVPB SCH (21:26)
[2019-03-12 00:19] LABS: Potassium 3.8 mmol/L (3.5-5.1)
--- NOTE | 2019-03-12 00:52 | OP ---
DATE OF PROCEDURE: 03/11/2019 PREOPERATIVE DIAGNOSIS: Incarcerated large left inguinal hernia. POSTOPERATIVE DIAGNOSES: 1. Incarcerated large indirect left inguinal hernia. 2. Large direct inguinal hernia, not incarcerated. OPERATION PERFORMED: Repair of incarcerated left inguinal hernia with PerFix light plug. ANESTHESIA: General endotracheal. ESTIMATED BLOOD LOSS: 10 mL. FLUIDS GIVEN: 1200 mL crystalloids. COUNTS: Sponge and instrument counts were verified as correct x2. COMPLICATIONS: None apparent at the time of operation. INDICATIONS FOR OPERATION: A 78-year-old man, an inmate of correctional facility, with long-standing large left inguinal hernia. The patient presented with acute and large bulge in his left groin with severe pain and failure to reduce. An incarcerated left inguinal hernia is diagnosed and the patient was brought to the operating room for repair. Findings are consistent with giant incarcerated indirect left inguinal hernia, as well as large non incarcerated direct left inguinal hernia. DESCRIPTION OF PROCEDURE: Informed consent was obtained from the patient. He was brought to the operating room and placed in supine position. Following general anesthesia, abdomen including the groin was sterilely prepped and draped in usual fashion. The scrotum was separately prepped and draped. An oblique incision was made in the left groin using a 15 scalpel. Incision was carried through subcutaneous tissues maintaining hemostasis. Superficial vessels were divided and cauterized. Gordo's fascia was incised along the line of the incision. External oblique aponeurosis was completely attenuated. The patient was placed in a Trendelenburg position and the large indirect hernia was reduced. The hernia sac and cord structures were dissected free from surrounding structures and encircled with a Faith drain. The large indirect hernia sac was then dissected off the cord structures. Care was taken to avoid injuries to the contents of cord. Vas deferens was identified and placed out of harm's way with remainder of the cord structures. Large hernia sac was opened and contents were reduced into the peritoneal cavity. This was twisted and divided the high inguinal position and the stump was ligated using a stick tie of 0 Vicryl and doubly ligated with a free tie of 0 Vicryl. The large direct hernia defect was also identified. At this juncture, the plug part of the PerFix plug mesh was placed in the internal ring and sutured circumferentially to internal oblique aponeurosis. The elliptical mesh piece was then brought into the operative field. The apex was sutured to the pubic tubercle and allowed to encircle the cord. This was sutured laterally to the external oblique fascia and medially to the internal oblique aponeurosis. This was achieved using running stitch of 2-0 Prolene. What was left of the external oblique aponeurosis was loosely approximated over the repair using running stitch of 0 Vicryl suture. Gordo's fascia was approximated using interrupted sutures of 2-0 Vicryl. Wound bed was infiltrated with 0.25% Marcaine with epinephrine. Skin incision was closed using a running stitch of 4-0 Monocryl suture in subcuticular fashion. Dermabond was applied over incisional closure. The patient tolerated the operation without any apparent complication and was returned to recovery room in satisfactory condition. Job ID: [id number]
[2019-03-12] MEDS: traMADol HCl 50 MG TAB PO PRN (03:36)
[2019-03-12 04:50] LABS: Anion Gap 12 mmol/L (10-20); BUN (Urea Nitrogen) 15 mg/dL (8.4-25.7); Calc. Creatinine Clearance 88 mL/min (70-130); Calcium 8.6 mg/dL (7.8-10.44); Carbon Dioxide 28 mmol/L (23-31); Chloride 99 mmol/L (98-107); Estimated GFR-MDRD Greater than 90; Glucose 215 mg/dL (83-110); Sodium 135 mmol/L (136-145)
[2019-03-12 05:08] LABS: #Lymphocytes 0.9 thou/uL (1.20-3.40); #Monocytes 1.1 thou/uL (0.11-0.59); #Neutrophils 11.9 thou/uL (1.40-6.50); %Basophils 0.1 % (0.0-1.0); %Eosinophils 0.3 % (0.0-10.0); %Lymphocytes 6.2 % (21.0-51.0); %Monocytes 8.2 % (0.0-10.0); %Neutrophils 85.2 % (42.0-75.0); Anisocytosis MODERATE=16-30 cells (100X) (0-5/hpf); Hemoglobin 8.6 g/dL (14.0-18.0); Hypochromia MODERATE=16-30 cells (100X) (0-5/hpf); MDiff Complete? YES; Mean Corpuscular HGB CONC 28.5 g/dL (32.0-36.0); Mean Corpuscular Hemoglobin 19.2 pg (27.0-31.0); Mean Corpuscular Volume 67.4 fL (78.0-98.0); Mean Platelet Volume 5.5 fL (7.4-10.4); Microcytosis SLIGHT = 6-15 cells (100X) (0-5/hpf); Platelet Count 272 thou/uL (130-400); RBC Distribution Width 25.5 % (11.5-14.5); Red Blood Cell (RBC) Count 4.45 mill/uL (4.70-6.10); Tear Drops SLIGHT = 2-5 cells (100X) (0-1/hpf)
[2019-03-12] MEDS: Furosemide 40 MG/4 ML VIAL SLOW IVP SCH ×2 (06:17→14:02)
[2019-03-12] MEDS: CEFAZOLIN 2 GM in Premix Bag 1 BAG IVPB SCH (06:17)
[2019-03-12] MEDS ORDERED: Ibuprofen 800 MG TAB PO PRN (09:36)
[2019-03-12] MEDS ORDERED: Ibuprofen 800 MG TAB PO SCH (09:45)
[2019-03-12] MEDS: Ferrous Sulfate 325 MG TAB PO SCH ×2 (09:46→17:24)
[2019-03-12] MEDS: Heparin 5,000 UNITS/ML VIAL SC SCH ×3 (09:47→21:09)
[2019-03-12] MEDS: Aspirin 81 mg Enteric Coated Tablet PO SCH (09:47)
[2019-03-12] MEDS: Lisinopril 20 MG TAB PO SCH (09:47)
[2019-03-12] MEDS: Polyethylene Glycol 3350 17 GM Packet PO SCH (09:49)
[2019-03-12] MEDS: Senokot S 8.6-50 MG TAB PO SCH ×2 (09:49→21:09)
[2019-03-12] MEDS: HumaLOG 300 UNITS/3 ML VIAL SC PRN ×2 (09:59→12:28)
[2019-03-12] MEDS: NPH, Human Insulin Isophane 300 UNIT/3 ML VIAL SC SCH ×2 (10:02→21:17)
[2019-03-12] MEDS ORDERED: Acetaminophen 500 MG TAB PO SCH (12:00)
--- NOTE | 2019-03-12 16:57 | PRG ---
DATE OF SERVICE: 03/12/2019 SUBJECTIVE: This is a 78-year-old gentleman, inmate of correctional facility. The patient was admitted for acute congestive heart failure and vague abdominal pain associated with long-standing left inguinal hernia for over the past five years. The patient is postoperative day #1, repair of incarcerated left inguinal hernia with PerFix light plug. The patient had no overnight events. OBJECTIVE: VITAL SIGNS: Temperature 98.0, pulse 97, respirations are 16, SpO2 of 100% on room air, and blood pressure 125/70. GENERAL: The patient is awake and alert, in no distress. HEART: Irregular rhythm. LUNGS: Clear to auscultation, breathing regular and nonlabored. ABDOMEN: Soft, nontender, and nondistended. Incision well approximated with no signs of drainage or infection. NEUROLOGIC: No focal deficits. LABORATORY DATA: WBC 14.0, RBC 4.45, hemoglobin 8.6, hematocrit 30.0, and platelets are 272. Sodium 135, potassium 4.0, chloride 99, BUN 15, creatinine 0.76, estimated GFR greater than 90, calcium 8.6, glucose 215. Diagnostics: Surgical specimen pending. IMPRESSION: Left incarcerated inguinal hernia repair. PLAN: From a surgical standpoint, the patient can be discharged. No heavy lifting greater than 25 pounds for 2 weeks. The patient is to follow up in 2 weeks with Trauma. The patient was examined with Dr. Judge during morning rounds. Job ID: [id number]
--- NOTE | 2019-03-12 19:06 | PDOC.CTH ---
Cardiology Progress Note - Subjective No new issues. - Objective Vital Signs Temp Pulse Resp BP BP Pulse Ox 03/12/19 17:17 98.0 F 87 15 116/64 100 03/12/19 12:33 97.9 F 98 15 111/65 100 03/12/19 09:47 125/70 03/12/19 09:45 98.0 F 97 16 125/70 100 Admit Weight 171 lb Weight 171 lb 03/11/19 03/12/19 03/13/19 06:59 06:59 06:59 Intake Total 1020 1430 365 Output Total 1050 625 Balance 1020 380 -260 - Physical Examination General/Neuro: alert & oriented x3, NAD Neck: no JVD present Lungs: unlabored respirations Heart: RRR Abdomen: NT/ND Extremities: other: (no edema) - Telemetry Telemetry Rhythm: NSR - Labs Result Diagrams: 03/12/19 04:21 03/12/19 04:21 Troponin/CKMB Troponin I 0.010 ng/mL (< 0.028) 03/07/19 13:06 - Assessment/Plan 1. Non ischemic CM 2. EF at 20-25% 3. S/P hernia repair. PLAN: - Lasix to PO BID scheduled. - Continue BB and ACEI. - He cannot have a lifevest from us, he needs to go back to his assisted and it will be arranged from there. - From cardiac perspective he is on medical therapy and may be discharged back to his unit with follow up with [facility] at [facility]. - He will need close follow up as he is high risk for re admission.
--- NOTE | 2019-03-12 21:43 | PRG ---
DATE OF SERVICE: 03/12/2019 SUBJECTIVE: The patient denies any new complaints. No new chest pain, shortness of breath, palpitations. He feels generally weak and fatigued. MEDICATIONS: Current medications were reviewed. The patient is on aspirin, Lasix, lisinopril, Toprol-XL, with NPH. REVIEW OF SYSTEMS: The patient has no bowel movement for last 2 days. No nausea, vomiting. Poor appetite. OBJECTIVE: VITAL SIGNS: Temperature 98, pulse 87, respirations of 15, blood pressure of 116/64, O2 saturation 100% on room air. GENERAL: A 78-year-old male, in no apparent distress. LUNGS: Showed diminished air entry at bilateral bases with few rales at bases. HEART: S1, S2 present. Regular rate and rhythm. ABDOMEN: Soft. Bowel sounds present. NEUROLOGIC: Grossly nonfocal. LABORATORY FINDINGS: WBC 14, hemoglobin 8.6, hematocrit 30, platelet count 272. Sodium 135, potassium 4, BUN 15, and creatinine 0.76. Telemetry monitoring by my review showed sinus rhythm. IMPRESSION: 1. Acute systolic and diastolic heart failure exacerbation with ejection fraction of 15% to 20% secondary to nonischemic cardiomyopathy. 2. Incarcerated left inguinal hernia, status post repair on 03/11/2019. 3. Iron-deficiency anemia. 4. Bilateral pleural effusion secondary to #1. 5. Diabetes mellitus type 2. 6. Chronic hepatitis C. 7. Physical deconditioning. PLAN: The patient will be transferred to [facility] for further management. The patient will need LifeVest due to cardiomyopathy. We will continue MiraLAX. We will probably change Lasix to oral in a.m. We will continue beta-blockers. Continue GARY inhibitor. The patient was counseled on congestive heart failure. We will recheck labs in a.m. Continue all other medications as below. Job ID: [id number]
[2019-03-13 05:35] LABS: Albumin 3.1 g/dL (3.4-4.8); Anion Gap 12 mmol/L (10-20); BUN (Urea Nitrogen) 17 mg/dL (8.4-25.7); BUN/Creatinine Ratio 22.08; Calc. Creatinine Clearance 87 mL/min (70-130); Calcium 8.8 mg/dL (7.8-10.44); Carbon Dioxide 29 mmol/L (23-31); Chloride 97 mmol/L (98-107); Estimated GFR-MDRD Greater than 90; Glucose 220 mg/dL (83-110); Magnesium 1.8 mg/dL (1.6-2.6); Potassium 3.6 mmol/L (3.5-5.1); Sodium 134 mmol/L (136-145)
[2019-03-13] MEDS: Aspirin 81 mg Enteric Coated Tablet PO SCH (08:07)
[2019-03-13] MEDS: Ferrous Sulfate 325 MG TAB PO SCH (08:08)
[2019-03-13] MEDS: Lisinopril 20 MG TAB PO SCH (08:08)
[2019-03-13] MEDS: Furosemide 20 MG TAB PO SCH ×2 (08:08→13:07)
[2019-03-13] MEDS: Heparin 5,000 UNITS/ML VIAL SC SCH (08:09)
[2019-03-13] MEDS: Senokot S 8.6-50 MG TAB PO SCH (08:14)
[2019-03-13] MEDS: Polyethylene Glycol 3350 17 GM Packet PO SCH (08:14)
[2019-03-13] MEDS ORDERED: Multivit, Therapeutic 1 TAB PO SCH (09:00)
[2019-03-13 13:30] VITALS: BP 124/79; TEMP 97.9
[2019-03-13 15:06] LABS: Anisocytosis MODERATE=16-30 cells (100X) (0-5/hpf); Eosinophils 2 % (0-10); Hemoglobin 8.6 g/dL (14.0-18.0); Hypochromia MODERATE=16-30 cells (100X) (0-5/hpf); Lymphocytes 5 % (21-51); MDiff Complete? YES; Mean Corpuscular Hemoglobin 19.1 pg (27.0-31.0); Mean Corpuscular Volume 70.6 fL (78.0-98.0); Mean Platelet Volume 6.8 fL (7.4-10.4); Microcytosis SLIGHT = 6-15 cells (100X) (0-5/hpf); Monocytes 5 % (0-10); Neutrophil 88 % (42-75); Platelet Count 261 thou/uL (130-400); Platelet Morphology Comment Appears Adequate; Poikilocytosis SLIGHT = 6-15 cells (100X) (0-5/hpf); Red Blood Cell (RBC) Count 4.51 mill/uL (4.70-6.10); White Blood Cell (WBC) Count 11.6 thou/uL (4.8-10.8)
--- NOTE | 2019-03-13 22:49 | DIS ---
DATE OF ADMISSION: 03/07/2019 DATE OF DISCHARGE: 03/13/2019 DISCHARGE DISPOSITION: The patient is an inmate. DISCHARGE INSTRUCTIONS: 1. The patient was advised to follow up with Cardiology as well as General Surgery at [facility]. No heavy lifting for 2 weeks. 2. The patient was extensively counseled on congestive heart failure. DISCHARGE MEDICATIONS: 1. Lasix 40 mg b.i.d. 2. Toprol-XL 25 mg daily. 3. Multivitamin one tablet daily. 4. MiraLAX daily. 5. Senokot-S 1 tablet b.i.d. 6. Lisinopril 20 mg daily. 7. Omeprazole 40 mg b.i.d. 8. Novolin R sliding scale, Novolin N 6 units b.i.d. 9. Ferrous sulfate 325 mg b.i.d. 10. Aspirin 81 mg daily. The patient was seen and examined on the day of discharge. Denies any new complaints. No chest pain, shortness of breath, or palpitations reported. LifeVest to be arranged by the rn corrections at [facility]. BRIEF HOSPITAL COURSE: The patient is a 78-year-old male, who presented on January 05, 2019 with abdominal discomfort. His workup was consistent with congestive heart failure exacerbation along with large left inguinal hernia along with incarceration. He was monitored on the telemetry unit. He was seen by Cardiology as well as General Surgery. Echocardiogram was obtained that showed ejection fraction of 15% to 20% with grade 2/3 diastolic dysfunction, moderate mitral regurgitation, mild aortic regurgitation, and moderate tricuspid regurgitation. A cardiac catheterization was performed on March 09, 2019 that showed no significant coronary artery disease. LifeVest was recommended, however, this needs to be arranged by [facility]. The patient also underwent repair of the incarcerated left inguinal hernia on March 11, 2019. The patient has been cleared by General Surgery as well as Cardiology for discharge. He was extensively counseled on congestive heart failure. His weight on the day of discharge is 173 pounds. He is saturating 100% on room air. FINAL DIAGNOSES: 1. Acute systolic and diastolic heart failure exacerbation with ejection fraction 15% to 20% secondary to nonischemic cardiomyopathy. ACC stage C. 2. Incarcerated left inguinal hernia, status post repair. 3. Iron-deficiency anemia. 4. Bilateral pleural effusion secondary to #1. 5. Diabetes mellitus type 2. 6. Chronic hepatitis C. 7. Physical deconditioning. 8. Hyponatremia. 9. Hypokalemia. 10. . 11. Abnormal LFTs secondary to passive hepatic congestion. 12. Chronic anemia. 13. Bacteriuria without pyuria. 14. Moderate tricuspid and mitral regurgitation. 15. Mild aortic regurgitation. TIME SPENT WITH PATIENT: Total time coordinating the discharge of this patient was 37 minutes. Job ID: [id number]
== END 2019-03-13 13:50 | DRG 987 ==
LOC: EEVIPCON 12:44 → ERS 12:44 → 2NO 18:28
PROVIDERS: ADMIT Internal Medicine; ATTEND Internal Medicine
PROC: 0YU60JZ Supplement Left Inguinal Region with Synthetic Substitute, Open Approach (ICD-10-PCS; principal; 2019-03-07)
PROC: 4A023N7 Measurement of Cardiac Sampling and Pressure, Left Heart, Percutaneous Approach (ICD-10-PCS; 2019-03-09)
PROC: B2151ZZ Fluoroscopy of Left Heart using Low Osmolar Contrast (ICD-10-PCS; 2019-03-09)
PROC: B2111ZZ Fluoroscopy of Multiple Coronary Arteries using Low Osmolar Contrast (ICD-10-PCS; 2019-03-09)
DX: I11.0 Hypertensive heart disease with heart failure (principal); J96.01 Acute respiratory failure with hypoxia; K40.30 Unilateral inguinal hernia, with obstruction, without gangrene, not specified as recurrent; E87.1 Hypo-osmolality and hyponatremia; I42.0 Dilated cardiomyopathy; I50.23 Acute on chronic systolic (congestive) heart failure; E11.65 Type 2 diabetes mellitus with hyperglycemia; B18.2 Chronic viral hepatitis C; D50.9 Iron deficiency anemia, unspecified; E87.6 Hypokalemia; Z79.4 Long term (current) use of insulin; Z79.82 Long term (current) use of aspirin; Z79.899 Other long term (current) drug therapy
CPT/HCPCS: 36415; 36416; 71045; 74177; 74250; 80048; 80053; 80069; 81001; 82274; 82728; 83540; 83550; 83605; 83690; 83735; 83880; 84484; 85025; 85060; 85610; 85730; 86850; 86900; 86901; 87077; 87086; 87186; 87220; 88302; 93005; 93306; 93458; 93798; 96361; 96374; 96375; C1769; J0690; J0694; J1644; J1815; J1940; J2001; J2250; J2270; J2405; J2704; J3010; J3480; J3490; J7050; Q9966; Q9967

== ENCOUNTER 2020-03-02 00:45 | Inpatient (IN) | payer OTHER ==
[2020-03-02 01:06] LABS: Actual Bicarbonate (HCO3a) 20.2 mEq/L (22-28); Analyzer IN Cardio ER; Base Excess (BEa) -7.3 mEq/L (-2.0 to +3.0); CO2 Tension 49.4 mmHg (35.0-45.0); Calcium, Ionized 1.06 mmol/L (1.12-1.30); Carboxyhemoglobin (COHb) 0.3 gm% (0.0-3.0); Hemoglobin (Hb) 11.3 g/dL (14.0-18.0); O2 Tension (PaO2) 207.2 mmHg (> 70.0); Potassium - ABG Lab 3.96 mmol/L (3.70-5.30)
[2020-03-02 01:08] LABS: Puncture Site LRA; pH, Arterial 7.23 (7.35-7.45)
[2020-03-02] MEDS ORDERED: Norepinephrine 8 MG/0.9% NS 250 ML ONE (01:55)
--- NOTE | 2020-03-02 02:08 | PDOC.FPRHP ---
- History of Present Illness Chief Complaint: unrepsonsive History of Present Illness: 79YOM with a PMH notable for IDDMII, combined HF, and chronic hep C w/ cirrhosis who was brought in by EMS after being found unresponsive at the residential earlier yesterday evening. Per the residential nurse, the patient presented to the [facility] and was given 5U NPH and 12U regular insulin for hyperglycemia with a BG of 416. However, later that day, the patient was reportedly "not feeling well" and was found to be hypoglycemic at 30 & was given 2 oral glucose tabs. A repeat BG level following the glucose tabs was still low at 22 so the nurse gave him a shot of glucagon and tried to start an IV. The patient then reportedly became combative and then unconscious so CPR was started & EMS was called. Per EMS, on their arrival to the residential, CPR was underway & the patient' s BG was still low at 60. His initial rhythm was asystole & CPR was continued during which time he was also sedated & intubated. A R humeral IO was also placed & en route to the [facility] he was shocked at 200J for Vtach & given epi x5, 80mg bicarb, 1 bag D10, & 200 ketamine for sedation. He was then given another 20mcg of epi IVP. In the [facility] he was given 80mg of Jarad and 4mg of Versed & before being transferred to [facility] for further management. ED Course: In the [facility] ER the patient was started on a levophed drip through his R humeral IO. Central line placement was attempted x4 & was unsuccessful. - Allergies/Adverse Reactions Allergies Allergy/AdvReac Type Severity Reaction Status Date / Time No Known Allergies Allergy Verified 03/07/19 21:44 - Home Medications Medication Instructions Recorded Confirmed Type Acetaminophen [Tylenol Suppository] 325 mg OK Q4H PRN supp 03/08/20 Rx Bisacodyl [Dulcolax] 10 mg OK DAILYPRN PRN supp 03/08/20 Rx Lorazepam [Ativan] 1 mg SLOW IVP Q1H PRN vial 03/08/20 Rx Morphine 4 mg SLOW IVP Q2H PRN vial 03/08/20 Rx Polyethylene Glycol 3350 [Miralax] 17 gm PER TUBE DAILY pk 05/09/20 Rx Scopolamine [Transderm Scop] 1.5 mg TD Q3D PRN patch 03/08/20 Rx Sennosides/Docusate Sodium 1 tab PO BID tab 03/08/20 Rx [Senokot S] - History PMHx: Hep C, cirrhosis, dementia, chronic anemia, 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 (EF 15-20% per February of 2019 ECHO), osteoarthritis, IDDM type 2, urinary incontinence PSHx: Left inguinal hernia repair (February of 2019) FHx: unknown Social: unknown - Review of Systems ROS unobtainable: due to endotracheal tube - Vital signs BP: 159/111 HR: 94 RR: 22 Tmax: 91.4F Pox: 100% on SIMV mode (TV 450, 40% FiO2 , PEEP 8, Ps 10) Wt: 74 kg - Physical Exam Constitutional: NAD, other (intubated) HEENT: normocephalic and atraumatic, other (NG & OT tubes in place) Heart: RRR, normal S1/S2 Lungs: CTAB, no respiratory distress, good air movement, no rales/rhonchi, no wheezing, other Abdomen: soft, bowel sounds present, other (mildly distended) Musculoskeletal: normal structure Neurological: other (unable to fully assess 2/2 intubation; gag reflex intact) Skin: no rash/lesions, good turgor Psychiatric: other (unable to fully assess 2/2 intubation) FMR H&P: Results - Labs Result Diagrams: 03/05/20 05:35 03/05/20 05:35 Lab results: ABG pH 7.23 (7.35-7.45) L* 03/02/20 01:02 ABG pCO2 49.4 mmHg (35.0-45.0) H 03/02/20 01:02 ABG pO2 207.2 mmHg (> 70.0) H 03/02/20 01:02 [facility] Labs: WBC 14 Hgb 11.3 Hct 37.6 Plts 143 3 bands 54 lymphocytes Na 139 K 4.0 Cl 101 HCO3 18 BUN 22 Cr 0.93 BG 199 - EKG Interpretation EKG: NSR @ 65 bmp w/ prolonged QT of 536 - Radiology Interpretation Chest x-ray Status: image reviewed by me (multifocal, non-peripheral airspace opacities vs. LAD) FMR H&P: A/P - Problem List (1) Cardiopulmonary arrest with successful resuscitation Status: Acute Code(s): I46.9 - CARDIAC ARREST, CAUSE UNSPECIFIED (2) Person under investigation for COVID-19 Status: Acute Code(s): Z20.828 - CONTACT W AND EXPOSURE TO OTH VIRAL COMMUNICABLE DISEASES (3) Hepatitis C Status: Chronic Code(s): B19.20 - UNSPECIFIED VIRAL HEPATITIS C WITHOUT HEPATIC COMA (4) Cirrhosis Status: Chronic Code(s): K74.60 - UNSPECIFIED CIRRHOSIS OF LIVER (5) Dementia Status: Chronic Code(s): F03.90 - UNSPECIFIED DEMENTIA WITHOUT BEHAVIORAL DISTURBANCE (6) Anemia Status: Chronic Code(s): D64.9 - ANEMIA, UNSPECIFIED (7) Heart failure Status: Chronic Code(s): I50.9 - HEART FAILURE, UNSPECIFIED Qualifiers: Heart failure type: unspecified (8) Urinary incontinence Status: Chronic Code(s): R32 - UNSPECIFIED URINARY INCONTINENCE (9) Diabetes mellitus, type II Status: Chronic Qualifiers: Diabetes mellitus intermediate designer insulin use: unspecified nursing home insulin use status - Plan 79YOM with a PMH notable for DMII, CHF & HTN who was brought in via EMS from residential after being found down & is s/p cardiopulmonary arrest w/ ROSC. # Cardiopulmonary arrest s/p ROSC: - Patient found down at the residential after reportedly being found to be severely hypoglycemic & was intubated at residential by EMS. Source of hypoglycemia unknown as patient was reportedly hyperglycemic earlier in the day yesterday. - Currently stable on Levophed drip and ventilatory support with mechanical ventilation. - Etiology for arrest unknown at this point. Will start BS abx with vanc & zosyn. COVID-19 & blood & urine cultures pending. UDS also pending. - Will continue targeted temperature management for ~24 hours s/p ROSC (until ~ 2313 on 03/02). Goal to keep temp between 32-36C (89.6-96.8F). - Will touch base with residential tomorrow to get contact information for next of kin to establish code status. #IDDMII: - Aware, will have SSI available to main BG levels between 140-180 while inpatient. #Combined HF (EF 15-20% per February 2019 ECHO): - Aware. Will give IVFs cautiously & get QD weights & strict I&Os. - Will resume home meds as appropriate based on clinical course. #Cirrhosis w/ h/o Hep C: - Aware, will resume home meds as tolerated & pending clinical course. #Chronic anemia: - H/H not in transfusion range based on [facility] labs. Will continue to trend. #OA: - Aware. #Urinary incontinence: - Tee in place. #Dementia - Aware. Dispo: Will admit to CCU for continued supportive care as needed. To establish code status with next of kin later this morning once [place] is available. Abx: Vanc & zosyn (03/02, day #1) IVFs: LR @ 120mL/hr GI PPX: Famotidine VTE PPX: Lovenox CODE STATUS: FULL CODE PCP: CC/[facility] FMR H&P: Upper Level - Plan Date/Time: 03/02/20 0205 I, [], have evaluated this patient and agree with findings/plan as outlined by events intern resident. Pertinent changes/additions are listed here. Addendum - Attending - Attending Attestation Date/Time: 03/11/20 0802 I personally evaluated the patient and discussed the management with Dr. Kelly at time of admission March 02. I agree with the History, Examination, Assessment and Plan documented above with any addition or exceptions noted below.
[2020-03-02] MEDS ORDERED: CCU Electrolyte Replacement 1 EACH FS SCH (04:36)
[2020-03-02] MEDS ORDERED: Dextrose 5% in Water 1,000 ML IV PRN (04:36)
[2020-03-02] MEDS ORDERED: Dextrose 50% Abboject 50 ML SYRINGE SLOW IVP PRN (04:36)
[2020-03-02] MEDS ORDERED: HumaLOG 300 UNITS/3 ML VIAL SC PRN (04:36)
[2020-03-02] MEDS ORDERED: PHOS-NAK 1 PKT PACK PO PRN ×2 (04:40)
[2020-03-02] MEDS ORDERED: Potassium Phosphate 9 MMOL in Sodium Chloride 0.9% 100 ML IVPB PRN (04:40)
[2020-03-02] MEDS ORDERED: Potassium Chloride 40 MEQ in Premix Bag 1 BAG IVPB PRN (04:40)
[2020-03-02] MEDS ORDERED: Potassium Chloride 20 MEQ TAB PO PRN (04:40)
[2020-03-02] MEDS ORDERED: Potassium Chloride 40 MEQ in Sodium Chloride 0.9% 250 ML 250 ML IVPB PRN (04:40)
[2020-03-02] MEDS ORDERED: Magnesium Oxide 400 MG TAB PO PRN ×2 (04:40)
[2020-03-02] MEDS ORDERED: CCU ELECTROLYTE REPLACEMENT PROTOCOL FS PRN (04:40)
[2020-03-02] MEDS ORDERED: Potassium Phosphate 12 MMOL in Sodium Chloride 0.9% 250 ML 250 ML IV PRN (04:40)
[2020-03-02] MEDS ORDERED: Magnesium 2 GM/50 ML 2 GM in Premix Bag 1 BAG IVPB PRN (04:40)
[2020-03-02] MEDS ORDERED: Potassium Phosphate 15 MMOL in Sodium Chloride 0.9% 250 ML 250 ML IV PRN (04:40)
[2020-03-02] MEDS ORDERED: Norepinephrine 8 MG/0.9% NS 250 ML IVPB SCH (04:49)
[2020-03-02] MEDS ORDERED: Propofol 1,000 MG/100 ML VIAL IV ONE (05:12)
[2020-03-02] MEDS ORDERED: Ventilator Sedation Protocol 1 EACH FS SCH (05:13)
[2020-03-02] MEDS ORDERED: Morphine 2 MG/ML SYRINGE SLOW IVP PRN (05:23)
[2020-03-02] MEDS ORDERED: fentaNYL Citrate/PF 2,000 MCG in Sodium Chloride 0.9% 60 ML IV SCH (05:23)
[2020-03-02] MEDS ORDERED: Fentanyl BOLUS 250 ML IVPB PRN (05:23)
[2020-03-02] MEDS ORDERED: DISCONTINUE PREVIOUS NARCOTIC PAIN MEDICATIONS AND BENZODIAZEPINES FS SCH (05:23)
[2020-03-02] MEDS ORDERED: Propofol BOLUS 1,000 MG/100 ML VIAL IV PRN (05:23)
[2020-03-02] MEDS ORDERED: Sterile Water 10 ML VIAL IVP PRN (05:28)
[2020-03-02] MEDS ORDERED: Acetaminophen 650 MG Suppository PR PRN (05:29)
[2020-03-02] MEDS ORDERED: Sodium Chloride 0.9% 1,000 ML IV SCH (05:30)
[2020-03-02] MEDS ORDERED: Vecuronium 10 MG VIAL IV PRN ×2 (05:30→17:17)
[2020-03-02] MEDS: Vancomycin HCl 1.25 GM in Sodium Chloride 0.9% 250 ML 250 ML IVPB SCH ×2 (05:34→16:33)
[2020-03-02] MEDS: Lactated Ringer's 1,000 ML IV SCH ×3 (05:35→16:32)
[2020-03-02] MEDS: Piperacillin/Tazobactam 3.375 GM in Sodium Chloride 0.9% 100 ML IVPB SCH ×4 (05:37→23:03)
--- NOTE | 2020-03-02 05:45 | PDOC.BPN ---
- Brief Progress Note Date/Time: 03/02/20 0222 I personally evaluated the patient and discussed the management with Dr. Kelly and Mari following patient's arrival to CCU. H&P still pending. I agree with the History, Examination, Assessment and Plan as discussed. Unclear hx form nursing home. Treated for hypoglycemia and cardiac arrest at nursing home. ROSC achieved. Absence of spontaneous breaths without sedation suggests severe hypoperfusion injury to the brain. Cooling protocol ongoing. IO IV access currently. Attempts made in ER unsuccessful. Will defer to Pulmonology or General Surgery for central line placement. Patient is Covid PUI. Complications include known DM, CHF, Hep C with cirrhosis. Poor prognosis. Currently unable to discuss clincal state with family as contact info is not known. Only the commercial real estate associate has this info and he is not available.
[2020-03-02 05:52] LABS: Bacteria/HPF None Seen HPF (None Seen); Bilirubin Negative (Negative); Blood, Urine 2+ (Negative); Clarity Clear (Clear); Glucose, Urine (Dipstick) 300 mg/dL (Negative); Leukocyte Negative Leu/uL (Negative); Nitrite Negative (Negative); Protein, Urine (Dipstick) 70 mg/dL (Neg-Trace); Squamous Epithelial 0-3 HPF (0-3); Urobilinogen Normal mg/dL (Less than 2); WBC/HPF 0-3 HPF (0-3)
[2020-03-02 06:01] LABS: Amphetamine Not Detected (NotDetected); Barbiturates Screen Not Detected (NotDetected); Benzodiazepine Screen Not Detected (NotDetected); Cocaine Metabolite Screen Not Detected (NotDetected); Medtox Control Line Valid? VALID (VALID); Medtox Reader # READER 4; Methadone Not Detected (NotDetected); Methamphetamine Not Detected (NotDetected); Opiate Screen Not Detected (NotDetected); Oxycodone Screen Not Detected (NotDetected); Phencyclidine (PCP) Not Detected (NotDetected); THC/Cannabinoid Screen Not Detected (NotDetected); Tricyclic Screen Not Detected (NotDetected)
[2020-03-02 06:21] LABS: #Lymphocytes 0.9 thou/uL (1.20-3.40); #Monocytes 1.6 thou/uL (0.11-0.59); #Neutrophils 13.3 thou/uL (1.40-6.50); %Basophils 0.3 % (0.0-1.0); %Eosinophils 0.2 % (0.0-10.0); %Lymphocytes 5.9 % (21.0-51.0); %Monocytes 10.2 % (0.0-10.0); %Neutrophils 83.4 % (42.0-75.0); Mean Corpuscular HGB CONC 30.1 g/dL (32.0-36.0); Mean Corpuscular Hemoglobin 28.4 pg (27.0-31.0); Mean Corpuscular Volume 94.4 fL (78.0-98.0); Mean Platelet Volume 7.8 fL (7.4-10.4); Platelet Count 187 thou/uL (130-400); RBC Distribution Width 14.5 % (11.5-14.5); Red Blood Cell (RBC) Count 4.58 mill/uL (4.70-6.10); White Blood Cell (WBC) Count 15.9 thou/uL (4.8-10.8)
[2020-03-02 06:28] LABS: INR-International Normal Ratio 1.3; PTT 27.9 SEC (22.9-36.1)
[2020-03-02 06:46] LABS: Anion Gap 16 mmol/L (10-20); BUN (Urea Nitrogen) 24 mg/dL (8.4-25.7); Calc. Creatinine Clearance 82 mL/min (70-130); Calcium 8.4 mg/dL (7.8-10.44); Carbon Dioxide 19 mmol/L (23-31); Chloride 105 mmol/L (98-107); Estimated GFR-MDRD Greater than 90; Glucose 142 mg/dL (83-110); Potassium 5.2 mmol/L (3.5-5.1); Sodium 135 mmol/L (136-145)
[2020-03-02 06:50] LABS: Phosphorus 4.6 mg/dL (2.3-4.7)
[2020-03-02 06:53] LABS: CKMB 19.8 ng/mL (0-6.6)
[2020-03-02] MEDS: Famotidine/PF 20 mg/2ml Vial SLOW IVP SCH ×2 (07:29→19:56)
[2020-03-02] MEDS: Enoxaparin Sodium 40 MG/0.4 ML SYRINGE SC SCH (07:29)
[2020-03-02] MEDS: Lorazepam 2 MG/ML VIAL SLOW IVP PRN ×2 (07:29→17:18)
[2020-03-02 07:51] LABS: Troponin I 0.984 ng/mL (< 0.028)
--- NOTE | 2020-03-02 08:53 | RAD ---
CHEST 1 VIEW: Date: 03/02/2020 HISTORY: Return of spontaneous circulation. COMPARISON: Radiograph from 2019. FINDINGS: There is an intraosseous catheter to right humeral head. Defibrillator pad projects over the right ch est. Endotracheal tube tip at level of clavicles. Heart size mildly enlarged. Low grade pulmonary edema. Possible fracture of the left anterior second rib. IMPRESSION: 1. Endotracheal tube tip in good position. 2. Possible minimally displaced left anterior second rib fracture. 3. Low grade edema. POS: HOME
[2020-03-02 09:39] LABS: Lactic Acid 2.6 mmol/L (0.5-2.2)
[2020-03-02 11:09] LABS: #Monocytes 1.5 thou/uL (0.11-0.59); #Neutrophils 13.3 thou/uL (1.40-6.50); %Basophils 0.1 % (0.0-1.0); %Eosinophils 0.2 % (0.0-10.0); %Lymphocytes 6.1 % (21.0-51.0); %Monocytes 9.5 % (0.0-10.0); %Neutrophils 84.1 % (42.0-75.0); Hemoglobin 12.4 g/dL (14.0-18.0); Mean Corpuscular HGB CONC 31.4 g/dL (32.0-36.0); Mean Corpuscular Volume 92.4 fL (78.0-98.0); Mean Platelet Volume 8.2 fL (7.4-10.4); Platelet Count 143 thou/uL (130-400); RBC Distribution Width 14.4 % (11.5-14.5); Red Blood Cell (RBC) Count 4.26 mill/uL (4.70-6.10); White Blood Cell (WBC) Count 15.9 thou/uL (4.8-10.8)
[2020-03-02 11:16] LABS: INR-International Normal Ratio 1.4; PTT 35.4 SEC (22.9-36.1); Prothrombin Time 17.3 SEC (12.0-14.7)
[2020-03-02 11:40] LABS: Anion Gap 16 mmol/L (10-20); BUN (Urea Nitrogen) 29 mg/dL (8.4-25.7); Calc. Creatinine Clearance 86 mL/min (70-130); Calcium 8.3 mg/dL (7.8-10.44); Carbon Dioxide 20 mmol/L (23-31); Chloride 106 mmol/L (98-107); Estimated GFR-MDRD Greater than 90; Glucose 163 mg/dL (83-110); Magnesium 1.9 mg/dL (1.6-2.6); Phosphorus 3.9 mg/dL (2.3-4.7); Potassium 4.6 mmol/L (3.5-5.1); Sodium 137 mmol/L (136-145)
[2020-03-02 11:50] LABS: CKMB 33.3 ng/mL (0-6.6); Troponin I 2.403 ng/mL (< 0.028)
[2020-03-02] MEDS: HumaLOG 300 UNITS/3 ML VIAL SC PRN ×2 (11:54→17:41)
[2020-03-02 11:58] LABS: SARS-CoV-2 MS2 Positive; SARS-CoV-2 N Gene Negative; SARS-CoV-2 S Gene Negative; SARS-CoV-2 orf1ab Negative
[2020-03-02] MEDS: Propofol 1,000 MG/100 ML VIAL IV PRN (15:39)
[2020-03-02 16:50] LABS: #Lymphocytes 0.8 thou/uL (1.20-3.40); #Monocytes 1.6 thou/uL (0.11-0.59); #Neutrophils 14.6 thou/uL (1.40-6.50); %Eosinophils 0.1 % (0.0-10.0); %Lymphocytes 4.9 % (21.0-51.0); %Monocytes 9.5 % (0.0-10.0); %Neutrophils 85.5 % (42.0-75.0); Hemoglobin 12.8 g/dL (14.0-18.0); Mean Corpuscular HGB CONC 31.7 g/dL (32.0-36.0); Mean Corpuscular Hemoglobin 28.8 pg (27.0-31.0); Mean Platelet Volume 7.7 fL (7.4-10.4); Platelet Count 142 thou/uL (130-400); RBC Distribution Width 14.4 % (11.5-14.5); Red Blood Cell (RBC) Count 4.46 mill/uL (4.70-6.10)
[2020-03-02 16:56] LABS: INR-International Normal Ratio 1.3; PTT 36.1 SEC (22.9-36.1)
--- NOTE | 2020-03-02 17:01 | CON ---
DATE OF CONSULTATION: 03/02/2020 REASON FOR CONSULTATION: Cardiac arrest. HISTORY OF PRESENT ILLNESS: Mr. Moeller is a 79-year-old gentleman, who is an inmate, who had an vij-lz-kptpcmig cardiac arrest. He went to the jail nurse in the [facility]. He was found to have a blood sugar of 416, so he was given 5 units of NPH and 12 units of regular insulin. Later that day, he was not feeling well, went back and his sugar was at 30. They gave him 2 glucose tabs and a repeat level was 22. A shot of glucagon was planned, and attempts to get an IV were fruitless as he became combative and eventually went unconscious. CPR was started. EMS was called. On arrival, he was in asystole. His blood sugar was back up to 60 at that point. He was intubated and brought in for further evaluation. He did have 1 run of ventricular tachycardia during his CPR, but this was not the initial rhythm. Currently, on my evaluation, he is sedated and intubated, unable to provide any history. PAST MEDICAL HISTORY: 1. Nonischemic cardiomyopathy. At last evaluation, EF was 15% to 20% back in February 2019. At that time, he had a normal heart catheterization and was sent home on a LifeVest. 2. Osteoarthritis. 3. Type 2 diabetes. 4. Urine incontinence. 5. Chronic anemia. 6. Dementia. 7. Hepatitis C with cirrhosis. PAST SURGICAL HISTORY: Left inguinal hernia repair. FAMILY HISTORY: Noncontributory. SOCIAL HISTORY: Per chart review. No alcohol, tobacco, or drugs. OUTPATIENT MEDICATIONS: 1. Aspirin 81 mg a day. 2. Insulin NPH 6 units b.i.d. 3. Regular insulin 100 units. 4. Lisinopril 5 mg a day. 5. Atorvastatin 10 mg at bedtime. 6. Carvedilol 12.5 mg b.i.d. 7. Lasix 40 mg a day. 8. Sofosbuvir with velpatasvir daily. 9. Spironolactone 25 mg b.i.d. REVIEW OF SYSTEMS: Unobtainable as the patient is sedated and intubated. PHYSICAL EXAMINATION: VITAL SIGNS: Temperature 93.2, he is being cooled currently, heart rate is 72, respiratory rate 22, saturating 100% on 40% FiO2 blood, blood pressure currently is 170/85. GENERAL: Sedated, intubated. LUNGS: Clear. CARDIOVASCULAR: S1, S2. There is a grade 2/6 systolic murmur at the right upper sternal border. ABDOMEN: Soft. Positive bowel sounds. EXTREMITIES: No edema. SKIN: Cool and dry. LABORATORY DATA: Laboratory work was reviewed. COVID PCR was negative. CBC with a white count of 15, hemoglobin of 12, hematocrit of 39, platelet count of 143. Coags were unremarkable. ABG was reviewed. Chemistries were reviewed. Troponin was 0.98 and 2.4 with CK-MB of 19, up to 33. Potassium was 5.2, down to 4.6. Normal BUN and creatinine. GFR was greater than 90. UA was 2+ blood. Urine drug screen was completely normal. Urine culture is negative at 12 hours. IMAGING STUDIES: Chest x-ray showed left anterior 2nd rib fracture and small amount of pulmonary edema. ASSESSMENT: 1. Lyn-zn-stdcrkez cardiac arrest. 2. Asystole. 3. Hypoglycemic arrest most likely. 4. Nonischemic cardiomyopathy with an EF of 15% to 20% at last evaluation. PLAN: 1. Get an echocardiogram to look at LV function and valvular structures. 2. If LV function remains reduced and he does well mentation miranda, he may be a candidate for an AICD before leaving the hospital. We will wait for neurologic recovery before this happens. 3. Continue outpatient regimen for now for heart failure. His heart failure medicines are adequate. May change his GARY inhibitor for Entresto in the next few days if he recovers neurologically. Thank you for letting us participate in the care of your patient. We will follow. Job ID: [id number]
[2020-03-02 17:11] LABS: Anion Gap 15 mmol/L (10-20); BUN (Urea Nitrogen) 29 mg/dL (8.4-25.7); Calc. Creatinine Clearance 84 mL/min (70-130); Calcium 8.1 mg/dL (7.8-10.44); Carbon Dioxide 20 mmol/L (23-31); Chloride 105 mmol/L (98-107); Estimated GFR-MDRD Greater than 90; Glucose 165 mg/dL (83-110); Magnesium 2.1 mg/dL (1.6-2.6); Phosphorus 3.7 mg/dL (2.3-4.7); Potassium 3.8 mmol/L (3.5-5.1); Sodium 136 mmol/L (136-145)
[2020-03-02 17:22] LABS: CKMB 43.6 ng/mL (0-6.6); Troponin I 1.839 ng/mL (< 0.028)
--- NOTE | 2020-03-02 22:08 | CON ---
DATE OF CONSULTATION: 03/02/2020 HISTORY OF PRESENT ILLNESS: Mr. Moeller is a 79-year-old. Apparently he has no family. He is mechanically ventilated. He is a [facility] inmate. He has an kon-jo-uhyknloh DNR document with his chart. Apparently, no one at the [facility] knows who signed it. Apparently he got hypoglycemic after an insulin injection which progressed to an unconscious state and asystole. Ventricular tachycardia was noted during CPR, but that was not what led to the code according to the records. PAST MEDICAL HISTORY: 1. Remarkable for an ejection fraction of 15-20% last year with normal coronaries. He went out with a LifeVest. 2. History of diabetes. 3. Osteoarthritis. 4. History of anemia. 5. History of dementia. 6. History of cirrhosis. 7. History of hepatitis C. 8. History of herniorrhaphy. SOCIAL HISTORY: He is currently not a drinker or smoker. FAMILY HISTORY: Unknown. REVIEW OF SYSTEMS: Not obtainable. PHYSICAL EXAMINATION: He has been taken off the cooling protocol. The time period between his arrest and the initiation of cooling will make this ineffective. His blood pressure 120/67, heart rate 72, respiratory rate is per mechanical ventilation. EYES: Pupils sluggish. NECK: Supple. LUNGS: Distant clear. HEART: Regular rhythm. ABDOMEN: Soft. EXTREMITIES: Without asymmetry. LABORATORY DATA: White count 17.0, hemoglobin 12.8, platelets 142. Electrolytes are normal except for bicarb of 20. Troponin is 2.4, which is not surprising after an arrest. PH at 1 o'clock this morning was 7.23, CO2 49, PO2 207. IMPRESSION: Status post respiratory arrest related to hypoglycemia, which led to a cardiac arrest. Given that he had a pre-existing bp-zju-ocwuogxnbbw status, we will have to proceed forward once due diligence is complete. Apparently, the [facility] is trying to find out who signed the zq-abb-pphcshninhz order. It is also unclear whether or not he will recover from this neurologically given the prolonged period of CPR. CRITICAL CARE TIME: 30 minutes. Job ID: [id number]
[2020-03-02 23:16] LABS: #Lymphocytes 0.9 thou/uL (1.20-3.40); #Monocytes 1.7 thou/uL (0.11-0.59); %Basophils 0.1 % (0.0-1.0); %Eosinophils 0.1 % (0.0-10.0); %Lymphocytes 4.6 % (21.0-51.0); %Monocytes 9.3 % (0.0-10.0); %Neutrophils 85.9 % (42.0-75.0); Hemoglobin 12.5 g/dL (14.0-18.0); Mean Corpuscular Hemoglobin 28.4 pg (27.0-31.0); Mean Corpuscular Volume 91.7 fL (78.0-98.0); Mean Platelet Volume 8.5 fL (7.4-10.4); Platelet Count 153 thou/uL (130-400); RBC Distribution Width 14.4 % (11.5-14.5); Red Blood Cell (RBC) Count 4.39 mill/uL (4.70-6.10); White Blood Cell (WBC) Count 18.6 thou/uL (4.8-10.8)
[2020-03-02 23:27] LABS: Anion Gap 19 mmol/L (10-20); BUN (Urea Nitrogen) 29 mg/dL (8.4-25.7); Calc. Creatinine Clearance 79 mL/min (70-130); Calcium 8.1 mg/dL (7.8-10.44); Carbon Dioxide 19 mmol/L (23-31); Chloride 106 mmol/L (98-107); Estimated GFR-MDRD Greater than 90; Glucose 156 mg/dL (83-110); INR-International Normal Ratio 1.3; Phosphorus 4.1 mg/dL (2.3-4.7); Potassium 3.9 mmol/L (3.5-5.1); Prothrombin Time 15.7 SEC (12.0-14.7); Sodium 140 mmol/L (136-145)
[2020-03-02 23:32] LABS: CKMB 30.6 ng/mL (0-6.6); Critical Call CKMB RESULT DECREASING; Critical Call Chem Troponin I RESULT DECREASING; Troponin I 1.488 ng/mL (< 0.028)
[2020-03-03] MEDS: Lactated Ringer's 1,000 ML IV SCH ×4 (02:57→20:46)
[2020-03-03 04:18] LABS: ALT (SGPT) 69 U/L (8-55); AST (SGOT) 56 U/L (5-34); Albumin 3.1 g/dL (3.4-4.8); Alkaline Phosphatase 127 U/L (40-110); Anion Gap 17 mmol/L (10-20); BUN (Urea Nitrogen) 28 mg/dL (8.4-25.7); Bilirubin, Total 0.7 mg/dL (0.2-1.2); Calc. Creatinine Clearance 72 mL/min (70-130); Carbon Dioxide 20 mmol/L (23-31); Chloride 107 mmol/L (98-107); Estimated GFR-MDRD Greater than 90; Globulin 3.2 g/dL (2.4-3.5); Glucose 174 mg/dL (83-110); Potassium 4.1 mmol/L (3.5-5.1); Protein, Total 6.3 g/dL (5.8-8.1); Sodium 140 mmol/L (136-145)
[2020-03-03 04:21] LABS: Band 13 % (5-11); Hemoglobin 11.9 g/dL (14.0-18.0); Hypochromia SLIGHT = 6-15 cells (100X) (0-5/hpf); Lymphocytes 4 % (21-51); MDiff Complete? YES; Mean Corpuscular HGB CONC 30.6 g/dL (32.0-36.0); Mean Corpuscular Hemoglobin 27.9 pg (27.0-31.0); Mean Corpuscular Volume 91.2 fL (78.0-98.0); Mean Platelet Volume 8.2 fL (7.4-10.4); Monocytes 8 % (0-10); Neutrophil 75 % (42-75); Nucleated RBC 1 % (0); Platelet Count 149 thou/uL (130-400); Platelet Morphology Comment Appears Adequate; RBC Distribution Width 14.3 % (11.5-14.5); Red Blood Cell (RBC) Count 4.27 mill/uL (4.70-6.10); White Blood Cell (WBC) Count 19.5 thou/uL (4.8-10.8)
[2020-03-03] MEDS: Piperacillin/Tazobactam 3.375 GM in Sodium Chloride 0.9% 100 ML IVPB SCH ×3 (06:07→18:14)
--- NOTE | 2020-03-03 06:49 | PDOC.FM ---
- Subjective Subjective: NAEO. Patient ventilated/sedated. Guards present at the bedside. No concerns per nursing. - Objective MAR Reviewed: Yes Vital Signs & Weight: Vital Signs (12 hours) Temp Pulse Resp BP Pulse Ox 03/03/20 06:00 22 H 03/03/20 04:00 98.9 F 22 H 03/03/20 02:14 90 128/66 03/03/20 02:00 22 H 03/03/20 00:00 99.2 F 22 H 03/02/20 22:21 85 135/68 03/02/20 22:00 22 H 03/02/20 20:00 97.9 F 22 H 100 Weight Weight 75.6 kg Most Recent Monitor Data Heart Rate from ECG 103 NIBP 140/71 NIBP BP-Mean 94 Respiration from ECG 17 SpO2 100 I&O: 03/01/20 03/02/20 03/03/20 06:59 06:59 06:59 Intake Total 100 3785.5 Output Total 500 2120 Balance -400 1665.5 Result Diagrams: 03/03/20 03:43 03/03/20 03:43 Phys Exam - Physical Examination Constitutional: NAD HEENT: moist MMs Neck: full ROM Respiratory: clear to auscultation bilateral Cardiovascular: RRR Gastrointestinal: non-tender, no distention mildly tense abdomen, more on R than L Neurological: non-focal open eyes to pain, withdrawls to pain, no purposeful movements Skin: no rash, normal turgor, cap refill <2 seconds Dx/Plan (1) Cardiopulmonary arrest with successful resuscitation Code(s): I46.9 - CARDIAC ARREST, CAUSE UNSPECIFIED Status: Acute (2) Person under investigation for COVID-19 Code(s): Z20.828 - CONTACT W AND EXPOSURE TO OTH VIRAL COMMUNICABLE DISEASES Status: Acute (3) Anemia Code(s): D64.9 - ANEMIA, UNSPECIFIED Status: Chronic (4) Cirrhosis Code(s): K74.60 - UNSPECIFIED CIRRHOSIS OF LIVER Status: Chronic (5) Dementia Code(s): F03.90 - UNSPECIFIED DEMENTIA WITHOUT BEHAVIORAL DISTURBANCE Status: Chronic (6) Diabetes mellitus, type II Status: Chronic Qualifiers: Diabetes mellitus intermediate insulin use: unspecified intermediate insulin use status (7) Heart failure Code(s): I50.9 - HEART FAILURE, UNSPECIFIED Status: Chronic Qualifiers: Heart failure type: unspecified (8) Hepatitis C Code(s): B19.20 - UNSPECIFIED VIRAL HEPATITIS C WITHOUT HEPATIC COMA Status: Chronic (9) Urinary incontinence Code(s): R32 - UNSPECIFIED URINARY INCONTINENCE Status: Chronic (10) CHF (congestive heart failure) Code(s): I50.9 - HEART FAILURE, UNSPECIFIED Status: Acute - Plan Plan: 79YOM with a PMH notable for DMII, CHF & HTN who was brought in via EMS from senior care after being found down & is s/p cardiopulmonary arrest w/ ROSC. Cardiopulmonary arrest s/p ROSC Patient found down at the senior care after reportedly being found to be severely hypoglycemic & was intubated at senior care by EMS. Source of hypoglycemia unknown as patient was reportedly hyperglycemic earlier in the day 03/01. - Pulm consulted, appreciate recs - Continue ventilatory support with mechanical ventilation. Off of pressors. Plan to possibly extubate tomorrow morning. - Etiology for arrest unknown at this point. Will start BS abx with vanc & zosyn. Blood & urine cultures NGTD. UDS negative. - Cooling protocol completed for ~24 hours s/p ROSC (until ~2313 on 03/02). Goal to keep temp between 32-36C (89.6-96.8F). - Palliative care consulted due to code status issue. Patient had OOH DNR, but was not valid as not signed by 2 physicians. at the hospital states no family or next kin. Patient status to be decided by 2 physicians here per the [facility] - DNR order put in by Hamida Herrmann and Yash. IDDMII - Aware, will have SSI available to main BG levels between 140-180 while inpatient. Combined HF (EF 15-20% per February 2019 ECHO) - Aware. Will give IVFs cautiously & get QD weights & strict I&Os. I/O balance: 1665ml - Will resume home meds as appropriate based on clinical course. Cirrhosis w/ h/o Hep C - Aware, will resume home meds as tolerated & pending clinical course. Chronic anemia - H/H not in transfusion range based on [facility] labs. Will continue to trend. OA - Aware. Urinary incontinence - Tee in place. Dementia - Aware. COVID NEGATIVE Dispo: pending clinical course, continue to monitor in CCU Abx: Vanc & zosyn (03/03, day #3) IVFs: LR @ 120mL/hr GI PPX: Famotidine VTE PPX: Lovenox CODE STATUS: FULL CODE PCP: CC/Residential Case discussed with Dr. Berrios Addendum - Attending - Attending Attestation Date/Time: 03/03/20 0397 I personally evaluated the patient and discussed the management with Dr. Menard I agree with the History, Examination, Assessment and Plan documented above with any addition or exceptions noted below - Patient intubated. Not following commands. Afebrile VSS. A/P: 1) Cardiac arrest s/p ROSC - off cooling protocol. No further arrhythmias. 2) Non-ischemic cardiomyopathy- stable. Appreciate cardiology recommendations. 3) Hypoglycemia - resolved. 4) Hep C with cirrhosis - stable Poor prognosis with recent cardiac arrest, poor EF and cirrhosis. Plan to wean off vent and extubate. Comfort measures and DNAR.
[2020-03-03 07:38] LABS: Actual Bicarbonate (HCO3a) 19.9 mEq/L (22-28); Base Excess (BEa) -2.6 mEq/L (-2.0 to +3.0); CO2 Tension 28.1 mmHg (35.0-45.0); Calcium, Ionized 1.06 mmol/L (1.12-1.30); Carboxyhemoglobin (COHb) 0.4 gm% (0.0-3.0); Hemoglobin (Hb) 11.7 g/dL (14.0-18.0); O2 Tension (PaO2) 129.8 mmHg (> 70.0); Potassium - ABG Lab 3.78 mmol/L (3.70-5.30); pH, Arterial 7.47 (7.35-7.45)
[2020-03-03 07:39] LABS: Puncture Site RRA
[2020-03-03 07:40] LABS: ALV-art Gradient 120.275 (0-20)
[2020-03-03] MEDS: Enoxaparin Sodium 40 MG/0.4 ML SYRINGE SC SCH (08:02)
[2020-03-03] MEDS: Famotidine/PF 20 mg/2ml Vial SLOW IVP SCH ×2 (08:02→20:46)
--- NOTE | 2020-03-03 11:31 | PRG ---
DATE OF SERVICE: 03/03/2020 SUBJECTIVE: Tony Moeller does not reliably follow commands. OBJECTIVE: VITAL SIGNS: FiO2 is at 30%, heart rate is 108, blood pressure 145/ 73, respiratory rate is per mechanical ventilation. LUNGS: Remarkable for mild rhonchi. HEART: Regular rhythm. ABDOMEN: Soft. EXTREMITIES: Without edema. LABORATORY DATA: White counts 19.5, hemoglobin 11.9, platelets 149,000. Sodium 140, potassium 4.1, chloride 107, bicarb 20, BUN 28, creatinine 0.89. PH 7.47, CO2 of 28, pO2 of 129. IMPRESSION AND PLAN: Respiratory failure associated with an goo-gp-budlxijd arrest. His prognosis is dismal. The warden was contacted by the nursing staff. He has no family. He was do not resuscitate at the [facility]. The warden says the doctors if they all agree, can withdrawal care when they feel timing is appropriate. I think he will have had adequate mechanical ventilation, and tomorrow, we may be able to consider extubation and comfort care moving forward. Check chest x-ray in the morning prior to extubation. Prognosis is dismal for any type of functional recovery in my opinion. Critical care time 30 min. Job ID: [id number] MTDD
[2020-03-03] MEDS: HumaLOG 300 UNITS/3 ML VIAL SC PRN ×2 (12:36→18:14)
[2020-03-03] MEDS: Propofol 1,000 MG/100 ML VIAL IV PRN ×2 (12:36→22:47)
[2020-03-03] MEDS ORDERED: Labetalol HCl 100 MG/20 ML VIAL SLOW IVP SCH (13:30)
--- NOTE | 2020-03-03 14:06 | PDOC.CPN ---
- Subjective Date: 03/03/20 Time: 14:05 Interval history: Remains intubated. Not following commands. - Review of Systems ROS unobtainable: due to endotracheal tube - Objective Allergies/Adverse Reactions: Allergies Allergy/AdvReac Type Severity Reaction Status Date / Time No Known Allergies Allergy Verified 03/07/19 21:44 Visit Medications: Current Medications Dextrose/Water (Dextrose 50%) 25 gm SLOW IVP PRN PRN PRN Reason: Hypoglycemia Enoxaparin Sodium (Lovenox) 40 mg SC 0900 [facility] Last Admin: 03/03/20 08:02 Dose: 40 mg Famotidine (Pepcid) 20 mg SLOW IVP Q12HR [facility] Last Admin: 03/03/20 08:02 Dose: 20 mg Glucagon (Glucagon) 1 mg IM PRN PRN PRN Reason: Hypoglycemia Dextrose/Water (D5w) 1,000 mls @ 0 mls/hr IV .Q0M PRN PRN Reason: Hypoglycemia Potassium Chloride 40 meq/ (Sodium Chloride) 270 mls @ 135 mls/hr IVPB ASDIR PRN PRN Reason: FOR SERUM K+ 2.5 - 3.5 Potassium Chloride 40 meq/ (Device) 100 mls @ 50 mls/hr IVPB ASDIR PRN PRN Reason: FOR SERUM K+ 2.5 - 3.5 Magnesium Sulfate 1 gm/ Sodium (Chloride) 102 mls @ 102 mls/hr IV PRN PRN PRN Reason: MAG LEVEL 1.4 - 2.0 Last Admin: 03/02/20 12:02 Dose: 102 mls Magnesium Sulfate 2 gm/ Device 50 mls @ 50 mls/hr IVPB ASDIR PRN PRN Reason: MAGNESIUM < 1.4 Potassium Phosphate 9 mmol/ (Sodium Chloride) 103 mls @ 25.75 mls/hr IVPB ASDIR PRN PRN Reason: Phosphate 1.0-1.8 Potassium Phosphate 12 mmol/ (Sodium Chloride) 254 mls @ 63.5 mls/hr IV ASDIR PRN PRN Reason: Serum phosphate 0.5-0.9 Potassium Phosphate 15 mmol/ (Sodium Chloride) 255 mls @ 63.75 mls/hr IV ASDIR PRN PRN Reason: Serum Phos < 0.5 Piperacillin Sod/Tazobactam (Sod 3.375 gm/ Sodium Chloride) 100 mls @ 200 mls/ hr IVPB Q6HR [facility] Last Admin: 03/03/20 12:36 Dose: 100 mls Fentanyl Citrate 2,000 mcg/ (Sodium Chloride) 100 mls @ 0 mls/hr IV INF [facility]; Protocol Stop: 04/01/20 05:23 Fentanyl Citrate (Fentanyl Bolus) 250 mls @ 0 mls/hr IVPB PRN PRN PRN Reason: Breakthrough pain/agitation Stop: 04/01/20 05:23 Lactated Ringer's (Lactated Ringer's) 1,000 mls @ 75 mls/hr IV .[id number] [facility] Last Admin: 03/03/20 08:01 Dose: Not Given Insulin Human Lispro (Humalog) 0 units SC .MILD SLIDING SCALE PRN PRN Reason: Mild Correctional Scale Last Admin: 03/03/20 12:36 Dose: 3 unit Insulin Human Lispro (Humalog) 0 units SC .BEDTIME SLIDING SC PRN PRN Reason: Bedtime Correctional Scale Labetalol HCl (Normodyne) 20 mg SLOW IVP NOW [facility] Stop: 03/03/20 15:30 Last Admin: 03/03/20 13:41 Dose: 20 mg Lorazepam (Ativan) 2 mg SLOW IVP Q1H PRN PRN Reason: Breakthrough agitation Stop: 04/01/20 05:23 Last Admin: 03/02/20 17:18 Dose: 2 mg Magnesium Oxide (Magnesium Oxide) 400 mg PO BIDPRN PRN PRN Reason: FOR SERUM MAG 1.4 - 2.0 Magnesium Oxide (Magnesium Oxide) 800 mg PO PRN PRN PRN Reason: FOR SERUM MAG < 1.4 Miscellaneous Medication (Ccu Electrolyte Replacement) 1 each FS ONE [facility] Stop: 04/01/20 04:37 Miscellaneous Medication (Phos-Nak) 1 pkt PO TIDPRN PRN PRN Reason: FOR PHOS LEVEL 1.0 - 1.8 Miscellaneous Medication (Phos-Nak) 2 pkt PO TIDPRN PRN PRN Reason: FOR PHOS LEVEL 0.5 - 1.0 Miscellaneous Medication (Ventilator Sedation Protocol) 1 each FS ONE [facility] Stop: 04/01/20 05:14 Morphine Sulfate (Morphine) 2 mg SLOW IVP Q1H PRN PRN Reason: BREAKTHROUGH PAIN/Agitation Stop: 04/01/20 05:23 Last Admin: 03/02/20 20:33 Dose: 2 mg Ccu Electrolyte (Replacement Protocol) 0 each FS PRN PRN PRN Reason: FOR ELECTROLYTE REPLACEMENT Discontinue Previous Narcotic Pain Medications And Benzodiazepines 1 each FS .ONE [facility] Stop: 04/01/20 05:23 Potassium Chloride (K-Dur) 40 meq PO ASDIR PRN PRN Reason: FOR SERUM K+ 2.5 - 3.5 Potassium Chloride (Klor-Con) 40 meq PER TUBE ASDIR PRN PRN Reason: FOR SERUM K+ 2.5-3.5 Propofol (Diprivan) 1,000 mg IV INF PRN; Protocol PRN Reason: TO ACHIEVE GOAL RASS Stop: 04/01/20 05:23 Last Admin: 03/03/20 12:36 Dose: 1,000 mg Propofol (Diprivan Bolus) 20 mg IV Q5MIN PRN PRN Reason: BREAKTHROUGH AGITATION Stop: 04/01/20 05:23 Sodium Chloride (Flush - Normal Saline) 10 ml IVF PRN PRN PRN Reason: Saline Flush Vecuronium Hawley (Norcuron) 10 mg IV Q30MIN PRN PRN Reason: . Last Admin: 03/02/20 17:18 Dose: 10 mg Vital Signs & Weight: Vital Signs Temp Pulse Resp BP Pulse Ox 03/03/20 13:51 80 123/73 03/03/20 13:41 124 H 104/67 03/03/20 12:00 99.1 F 16 03/03/20 11:00 96 03/03/20 10:00 16 03/03/20 08:00 22 H 100 03/03/20 07:26 113 H 03/03/20 07:00 98.8 F 03/03/20 06:00 22 H 03/03/20 04:00 98.9 F 22 H 03/03/20 02:14 90 128/66 Admit Weight 167 lb 8.8 oz Weight 166 lb 10.711 oz - Physical Exam General: other (S/I) HEENT: normocephaly Neck: supple neck Cardiac: irregularly regular Lungs: clear to auscultation Neuro: other (Unresponsive.) Abdomen: active bowel sounds Extremities: no edema Skin: clear Musculoskeletal: no pain - Labs Result Diagrams: 03/03/20 03:43 03/03/20 03:43 Troponin/CKMB CK-MB (CK-2) 30.6 ng/mL (0-6.6) H* 03/02/20 22:50 Troponin I 1.488 ng/mL (< 0.028) H* 03/02/20 22:50 - Telemetry Sinus rhythms and dysrhythmias: sinus rhythm - Assessment/Plan Assessment/Plan: 1. Out of hospital cardiac arrest. 2. Asystole was initial rhythm. 3. Hypoglycemia, likely trigger 4. Non ischemic Cardiomyopathy Echo today EF at 30-35% 5. Anoxic brain injury. PLAN: - Continue supportive care. - If neurological recovery then will consider other modalities of CHF therapies. - Poor watermelon inspector prognosis. - Will follow.
[2020-03-04] MEDS: Piperacillin/Tazobactam 3.375 GM in Sodium Chloride 0.9% 100 ML IVPB SCH ×3 (00:16→11:40)
[2020-03-04 03:41] LABS: #Eosinphils 0.3 thou/uL (0.0-0.7); #Lymphocytes 1.4 thou/uL (1.20-3.40); #Monocytes 1.8 thou/uL (0.11-0.59); #Neutrophils 11.1 thou/uL (1.40-6.50); %Basophils 0.3 % (0.0-1.0); %Eosinophils 1.9 % (0.0-10.0); %Lymphocytes 9.8 % (21.0-51.0); %Monocytes 12.1 % (0.0-10.0); %Neutrophils 75.9 % (42.0-75.0); Hemoglobin 10.5 g/dL (14.0-18.0); Mean Corpuscular HGB CONC 30.7 g/dL (32.0-36.0); Mean Corpuscular Volume 91.2 fL (78.0-98.0); Mean Platelet Volume 8.5 fL (7.4-10.4); Platelet Count 142 thou/uL (130-400); RBC Distribution Width 14.6 % (11.5-14.5); Red Blood Cell (RBC) Count 3.76 mill/uL (4.70-6.10); White Blood Cell (WBC) Count 14.7 thou/uL (4.8-10.8)
[2020-03-04 04:00] LABS: ALT (SGPT) 53 U/L (8-55); AST (SGOT) 37 U/L (5-34); Albumin 2.9 g/dL (3.4-4.8); Alkaline Phosphatase 105 U/L (40-110); Anion Gap 14 mmol/L (10-20); BUN (Urea Nitrogen) 22 mg/dL (8.4-25.7); Bilirubin, Total 0.8 mg/dL (0.2-1.2); Calc. Creatinine Clearance 75 mL/min (70-130); Calcium 8.1 mg/dL (7.8-10.44); Carbon Dioxide 22 mmol/L (23-31); Chloride 109 mmol/L (98-107); Estimated GFR-MDRD Greater than 90; Glucose 133 mg/dL (83-110); Potassium 3.6 mmol/L (3.5-5.1); Protein, Total 5.9 g/dL (5.8-8.1); Sodium 141 mmol/L (136-145)
[2020-03-04] MEDS: Propofol 1,000 MG/100 ML VIAL IV PRN (06:46)
--- NOTE | 2020-03-04 07:17 | PDOC.FM ---
- Subjective Subjective: Able to open eyes, squeeze hands, move feet. Denies pain. Currently intubated. Abdomen distended and tympanic. No BM since admission. - Objective MAR Reviewed: Yes Vital Signs & Weight: Vital Signs (12 hours) Temp Pulse Resp BP Pulse Ox 03/04/20 06:00 17 03/04/20 04:00 98.9 F 16 03/04/20 03:28 100 139/71 03/04/20 02:00 21 H 03/04/20 01:37 95 148/82 H 03/04/20 00:00 99.1 F 17 03/03/20 22:00 17 03/03/20 21:15 100 135/73 03/03/20 20:00 99.1 F 17 100 Weight Admit Weight 75.999 kg Weight 76.5 kg Most Recent Monitor Data Heart Rate from ECG 102 NIBP 144/81 NIBP BP-Mean 102 Respiration from ECG 17 SpO2 100 I&O: 03/03/20 03/04/20 03/05/20 06:59 06:59 06:59 Intake Total 3785.5 2314 Output Total 2120 1212 Balance 1665.5 1102 Result Diagrams: 03/04/20 03:24 03/04/20 03:24 Phys Exam - Physical Examination Intubated and lightly sedated. Neck: supple Respiratory: no wheezing, clear to auscultation bilateral Cardiovascular: RRR Gastrointestinal: positive bowel sounds distended, tympanic to percussion. Musculoskeletal: no edema Neurological: moves all 4 limbs Skin: no rash Dx/Plan - Plan Plan: 79yo male with pmh of DMII, CHF & HTN admitted s/p cardiopulmonary arrest w/ ROSC. Cardiopulmonary arrest s/p ROSC Patient found down at the correction after reportedly being found to be severely hypoglycemic & was intubated at correction by EMS. Source of hypoglycemia unknown as patient was reportedly hyperglycemic earlier in the day 5/. - Plan for extubation today and comfort care. IDDMII - SSI available to main BG levels between 140-180 while inpatient. 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 Daily weights & strict I&Os. Cirrhosis w/ h/o Hep C - Resume home meds as tolerated & pending clinical course. Chronic anemia - Continue to monitor OA Urinary incontinence - Tee in place Dementia COVID NEGATIVE Abx: zosyn IVFs: LR @ 75mL/hr GI PPX: Famotidine DVT PPX: Lovenox CODE STATUS: FULL PCP: [facility] Case discussed with Dr. Berrios Addendum - Attending - Attending Attestation Date/Time: 03/04/20 [id number] I personally evaluated the patient and discussed the management with Dr. Gutiérrez I agree with the History, Examination, Assessment and Plan documented above with any addition or exceptions noted below- Patient opens eyes; does not follow commands. Afebrile VSS. A/P: 1) Cardiac arrest s/p ROSC - no further arrhythmias. Poor prpnosis for any meaningful functional recovery. Plan to extubate and institute comfort measures. 2) Hypoglycemia- resolved. 3) HfrEF- stable.
--- NOTE | 2020-03-04 07:59 | RAD ---
Chest one view HISTORY: Respiratory failure. Follow-up. COMPARISON: 03/02/2020. FINDINGS: Cardiac silhouette is magnified and upper limits of normal in size. Mediastinum is shifted leftward with the patient rotation. Pulmonary vasculature slightly engorged. Infiltrate at the right lung base has progressed, partially obscuring the right hemidiaphragm. Calcification within the aortic arch. Endotracheal catheter unchanged in position. Nasogastric tube n ow descends to the abdomen. No evidence of pneumothorax. face hardener leads overlie the chest. IMPRESSION : Worsening right lower lobe infiltrate. Increasing pulmonary vascular congestion. Interval placement nasogastric tube.
[2020-03-04] MEDS ORDERED: Milk Of Magnesia 30 ML UDCUP PO PRN (08:33)
[2020-03-04] MEDS: Famotidine/PF 20 mg/2ml Vial SLOW IVP SCH ×2 (08:42→20:41)
[2020-03-04] MEDS: Enoxaparin Sodium 40 MG/0.4 ML SYRINGE SC SCH (08:42)
[2020-03-04] MEDS: Polyethylene Glycol 3350 17 GM Packet PER TUBE SCH (09:07)
[2020-03-04] MEDS: Lactated Ringer's 1,000 ML IV SCH ×2 (09:09→22:24)
[2020-03-04] MEDS: HumaLOG 300 UNITS/3 ML VIAL SC PRN (10:51)
[2020-03-04] MEDS ORDERED: Labetalol HCl 100 MG/20 ML VIAL SLOW IVP SCH ×2 (14:15→17:45)
[2020-03-04] MEDS ORDERED: Lisinopril 5 MG TAB PO SCH (14:30)
[2020-03-04] MEDS ORDERED: Carvedilol 6.25 MG TAB PO SCH ×2 (14:30→21:00)
--- NOTE | 2020-03-04 16:22 | PRG ---
DATE OF SERVICE: 03/04/2020 SUBJECTIVE: He is stable overnight. OBJECTIVE: VITAL SIGNS: Heart rate is 117, blood pressure is 177/99, respiratory rate is in the 20s. LUNGS: Remarkable for rhonchi bilaterally. HEART: Regular rhythm. ABDOMEN: Soft. EXTREMITIES: Without clubbing, cyanosis, or edema. LABORATORY DATA: Chest radiograph still shows right lower lobe infiltrate. IMPRESSION: Respiratory failure with an [id number] DNR. The patient was intubated prior to admission to the hospital. Given this fact, I do not think it is appropriate to continue with mechanical ventilation for a prolonged period of time. I think his prognosis for any type of functional recovery is extremely poor. He has an ejection fraction of 15% to 20% and moderate mitral regurgitation. Obviously, he is not a candidate for any coronary or cardiac interventions. He was subsequently extubated today and has been stable postextubation. He will transfer out of the Critical Care unit for comfort measures. Critical care time 35 min. Job ID: [id number] MTDD
[2020-03-04] MEDS ORDERED: Labetalol HCl 100 MG/20 ML VIAL SLOW IVP PRN (17:31)
[2020-03-04] MEDS ORDERED: Morphine 4 MG/ML VIAL SLOW IVP PRN (17:32)
[2020-03-04] MEDS: Scopolamine 1.5 mg/72 hour Patch TD PRN (17:46)
[2020-03-04] MEDS: Lorazepam 2 MG/ML VIAL SLOW IVP PRN ×2 (17:47→22:00)
--- NOTE | 2020-03-04 17:48 | PDOC.CPN ---
- Subjective Date: 03/04/20 Time: 17:46 Interval history: Was extubated to comfort care. - Objective Allergies/Adverse Reactions: Allergies Allergy/AdvReac Type Severity Reaction Status Date / Time No Known Allergies Allergy Verified 03/07/19 21:44 Visit Medications: Current Medications Dextrose/Water (Dextrose 50%) 25 gm SLOW IVP PRN PRN PRN Reason: Hypoglycemia Enoxaparin Sodium (Lovenox) 40 mg SC 0900 [facility] Last Admin: 03/04/20 08:42 Dose: 40 mg Famotidine (Pepcid) 20 mg SLOW IVP Q12HR [facility] Last Admin: 03/04/20 08:42 Dose: 20 mg Glucagon (Glucagon) 1 mg IM PRN PRN PRN Reason: Hypoglycemia Dextrose/Water (D5w) 1,000 mls @ 0 mls/hr IV .Q0M PRN PRN Reason: Hypoglycemia Lactated Ringer's (Lactated Ringer's) 1,000 mls @ 75 mls/hr IV .[id number] [facility] Last Admin: 03/04/20 09:09 Dose: 1,000 mls Insulin Human Lispro (Humalog) 0 units SC .MILD SLIDING SCALE PRN PRN Reason: Mild Correctional Scale Last Admin: 03/04/20 10:51 Dose: 2 unit Insulin Human Lispro (Humalog) 0 units SC .BEDTIME SLIDING SC PRN PRN Reason: Bedtime Correctional Scale Labetalol HCl (Normodyne) 20 mg SLOW IVP Q4H PRN PRN Reason: SBP Greater Than 180 Labetalol HCl (Normodyne) 20 mg SLOW IVP NOW [facility] Stop: 03/04/20 19:45 Lorazepam (Ativan) 1 mg SLOW IVP Q1H PRN PRN Reason: Anxiety/Agitation Miscellaneous Medication (Ccu Electrolyte Replacement) 1 each FS ONE [facility] Stop: 04/01/20 04:37 Morphine Sulfate (Morphine) 4 mg SLOW IVP Q2H PRN PRN Reason: Pain Polyethylene Glycol (Miralax) 17 gm PER TUBE DAILY [facility] Last Admin: 03/04/20 09:07 Dose: 17 gm Scopolamine (Transderm Scop) 1.5 mg TD Q3D PRN PRN Reason: Secretions Sodium Chloride (Flush - Normal Saline) 10 ml IVF PRN PRN PRN Reason: Saline Flush Vital Signs & Weight: Vital Signs Temp Pulse Resp Pulse Ox 03/04/20 12:00 100 03/04/20 11:00 98.7 F 03/04/20 10:00 20 03/04/20 08:15 100 03/04/20 08:00 24 H 100 03/04/20 07:00 98.8 F 03/04/20 06:00 17 Admit Weight 167 lb 8.8 oz Weight 168 lb 10.458 oz - Physical Exam General: cachectic HEENT: normocephaly Neck: supple neck Cardiac: tachycardia Lungs: scattered rhonchi Neuro: no lateralizing findings Abdomen: active bowel sounds Extremities: no edema Skin: clear Musculoskeletal: no pain - Labs Result Diagrams: 03/04/20 03:24 03/04/20 03:24 Troponin/CKMB CK-MB (CK-2) 30.6 ng/mL (0-6.6) H* 03/02/20 22:50 Troponin I 1.488 ng/mL (< 0.028) H* 03/02/20 22:50 - Telemetry Sinus rhythms and dysrhythmias: sinus rhythm - Assessment/Plan Assessment/Plan: 1. Out of hospital cardiac arrest. 2. Asystole was initial rhythm. 3. Hypoglycemia, likely trigger 4. Non ischemic Cardiomyopathy Echo today EF at 30-35% 5. Anoxic brain injury. PLAN: - Out of hospital DNR in place. - Extubated to comfort care. - I think this is reasonable, he has a severe cardiomyopathy, extremely deconditioned. - Will sign off. Please call with any questions.
[2020-03-05 05:49] LABS: #Eosinphils 0.3 thou/uL (0.0-0.7); #Monocytes 1.3 thou/uL (0.11-0.59); #Neutrophils 7.2 thou/uL (1.40-6.50); %Basophils 0.2 % (0.0-1.0); %Eosinophils 2.6 % (0.0-10.0); %Lymphocytes 10.4 % (21.0-51.0); %Monocytes 12.9 % (0.0-10.0); %Neutrophils 73.9 % (42.0-75.0); Hemoglobin 10.2 g/dL (14.0-18.0); Mean Corpuscular HGB CONC 31.1 g/dL (32.0-36.0); Mean Corpuscular Hemoglobin 28.1 pg (27.0-31.0); Mean Corpuscular Volume 90.2 fL (78.0-98.0); Mean Platelet Volume 7.9 fL (7.4-10.4); Platelet Count 124 thou/uL (130-400); RBC Distribution Width 14.2 % (11.5-14.5); Red Blood Cell (RBC) Count 3.62 mill/uL (4.70-6.10); White Blood Cell (WBC) Count 9.8 thou/uL (4.8-10.8)
[2020-03-05 06:10] LABS: ALT (SGPT) 50 U/L (8-55); AST (SGOT) 37 U/L (5-34); Alkaline Phosphatase 106 U/L (40-110); Anion Gap 11 mmol/L (10-20); BUN (Urea Nitrogen) 12 mg/dL (8.4-25.7); Bilirubin, Total 1.2 mg/dL (0.2-1.2); Calc. Creatinine Clearance 91 mL/min (70-130); Carbon Dioxide 23 mmol/L (23-31); Chloride 108 mmol/L (98-107); Estimated GFR-MDRD Greater than 90; Globulin 3.1 g/dL (2.4-3.5); Glucose 149 mg/dL (83-110); Potassium 3.9 mmol/L (3.5-5.1); Protein, Total 6.1 g/dL (5.8-8.1); Sodium 138 mmol/L (136-145)
--- NOTE | 2020-03-05 07:15 | PDOC.FM ---
- Subjective Subjective: NAEO. Patient resting comfortably in bed. Does not respond verbally. Patient does open eyes to command at times and to pain. No concerns/complaints per nursing. - Objective MAR Reviewed: Yes Vital Signs & Weight: Vital Signs (12 hours) Temp Pulse Resp BP Pulse Ox 03/04/20 20:00 98.7 F 123 H 22 H 166/97 H 99 Weight Admit Weight 75.999 kg Weight 76.5 kg Most Recent Monitor Data Heart Rate from ECG 117 NIBP 188/112 NIBP BP-Mean 137 Respiration from ECG 27 SpO2 100 I&O: 03/04/20 03/05/20 03/06/20 06:59 06:59 06:59 Intake Total 2314 740 Output Total 1212 1250 Balance 1102 -510 Result Diagrams: 03/05/20 05:35 03/05/20 05:35 Phys Exam - Physical Examination Constitutional: NAD HEENT: moist MMs, sclera anicteric Neck: supple, full ROM Respiratory: clear to auscultation bilateral Cardiovascular: RRR Gastrointestinal: soft Neurological: non-focal Skin: no rash, normal turgor, cap refill <2 seconds Dx/Plan (1) Cardiopulmonary arrest with successful resuscitation Code(s): I46.9 - CARDIAC ARREST, CAUSE UNSPECIFIED Status: Acute (2) Person under investigation for COVID-19 Code(s): Z20.828 - CONTACT W AND EXPOSURE TO OTH VIRAL COMMUNICABLE DISEASES Status: Acute (3) Anemia Code(s): D64.9 - ANEMIA, UNSPECIFIED Status: Chronic (4) Cirrhosis Code(s): K74.60 - UNSPECIFIED CIRRHOSIS OF LIVER Status: Chronic (5) Dementia Code(s): F03.90 - UNSPECIFIED DEMENTIA WITHOUT BEHAVIORAL DISTURBANCE Status: Chronic (6) Diabetes mellitus, type II Status: Chronic Qualifiers: Diabetes mellitus extermination supervisor insulin use: unspecified [facility] insulin use status (7) Heart failure Code(s): I50.9 - HEART FAILURE, UNSPECIFIED Status: Chronic Qualifiers: Heart failure type: unspecified (8) Hepatitis C Code(s): B19.20 - UNSPECIFIED VIRAL HEPATITIS C WITHOUT HEPATIC COMA Status: Chronic (9) Urinary incontinence Code(s): R32 - UNSPECIFIED URINARY INCONTINENCE Status: Chronic (10) CHF (congestive heart failure) Code(s): I50.9 - HEART FAILURE, UNSPECIFIED Status: Acute - Plan Plan: 79yo male with pmh of DMII, CHF & HTN admitted s/p cardiopulmonary arrest w/ ROSC. Cardiopulmonary arrest s/p ROSC Patient found down at the care home after reportedly being found to be severely hypoglycemic & was intubated at care home by EMS. Source of hypoglycemia unknown as patient was reportedly hyperglycemic earlier in the day 5/. - Extubated 03/05 and transitioned to comfort care. Ativan, morphine PRN. Scopolamine for secretions. - CM consulted for dc planning - will need [facility] bed, comfort care. 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 Cirrhosis w/ h/o Hep C - Resume home meds as tolerated & pending clinical course. Chronic anemia - Continue to monitor OA Urinary incontinence - Tee in place Dementia Constipation - Will add bowel regimen COVID NEGATIVE GI PPX: Famotidine DVT PPX: Lovenox CODE STATUS: FULL PCP: CC/[facility] Case discussed with Dr. Berrios Addendum - Attending - Attending Attestation Date/Time: 03/05/20 1322 I personally evaluated the patient and discussed the management with Dr. Menard I agree with the History, Examination, Assessment and Plan documented above with any addition or exceptions noted below - Patient appears in NAD; opens eyes but no verbal response. Afebrile VSS. A/P: 1) s/p cardiac arrest with ROSC - now extubated. 2) HFrEF - unable to take po meds; will give via IV those that can be converted. 3) D/C planning- will contact case management to assist with eventually transfer to [facility].
[2020-03-05] MEDS ORDERED: Lisinopril 5 MG TAB PO SCH (09:00)
[2020-03-05] MEDS: Polyethylene Glycol 3350 17 GM Packet PER TUBE SCH (09:29)
[2020-03-05] MEDS: Senokot S 8.6-50 MG TAB PO SCH ×2 (09:29→20:43)
[2020-03-05] MEDS: Enoxaparin Sodium 40 MG/0.4 ML SYRINGE SC SCH (09:44)
[2020-03-05] MEDS: Famotidine/PF 20 mg/2ml Vial SLOW IVP SCH ×2 (09:44→09:45)
[2020-03-05] MEDS: Lorazepam 2 MG/ML VIAL SLOW IVP PRN ×2 (09:47→17:04)
[2020-03-05 13:48] VITALS: BMI 22.8
[2020-03-05] MEDS: Morphine 4 MG/ML VIAL SLOW IVP PRN ×2 (14:48→21:08)
--- NOTE | 2020-03-05 16:05 | PQF ---
CLINICAL DOCUMENTATION IMPROVEMENT CLARIFICATION FORM: ICD-10 Updated PLEASE DO AN ADDENDUM TO THE PROGRESS NOTE WITH ANY DOCUMENTATION UPDATES OR ADDITIONS AND CARRY THROUGH TO DC SUMMARY. THANK YOU. DATE: 03/05/2020 ATTN: Dr. Menard/ Attending Dr. Berrios Please exercise your independent, professional judgment in responding to the clarification form. Clinical indicators are provided on the bottom of this form for your review Please check appropriate box(s) to determine sequence of events: [ x ] Cardio respiratory arrest [ ] Respiratory cardiac arrest [ ] Due to (please specify): [ ] Underlying condition [ x ] Hypoglycemia [ ] Other (please specify) [ ] Other diagnosis [ ] Unable to determine In addition, please specify: Present on Admission (POA): [ x ] Yes [ ] No [ ] Unable to determine For continuity of documentation, please document condition throughout progress notes and discharge summary. Thank You. CLINICAL INDICATORS - SIGNS / SYMPTOMS / LABS / RESULTS AND LOCATION IN EMR H&P 03/02: Cardiopulmonary arrest s/p ROSC: Pt found down at the [facility] after reportedly being found to be severely hypoglycemic & was intubated at [facility] by EMS. Source of hypoglycemia unknown as pt was reportedly hyperglycemic earlier in the day yesterday. 03/02 (Alize) Apparently he got hypoglycemic after an insulin injection which progressed to an unconscious state and asystole. Ventricular tachycardia was noted during CPR, but that was not what led to the code according to the records. Impression: S/p respiratory arrest related to hypoglycemia, which led to a cardiac arrest. 03/04 (Ratna) Out of hospital cardiac arrest. Asystole was initial rhythm. Hypoglycemia, likely trigger RISKS: H&P 03/02: PMH Hep C, cirrhosis, dementia, combined heart failure 2/2 nonischemic CM, IDDM type 2 03/03 (Alize) Respiratory failure associated with an [id number] arrest. TREATMENT: ER record: 03/02:EMS reports he lost his pulse, CPR was performed, pt was shocked once for V tach and ROSC was achieved. Order 03/02: Levophed 250 ml IVPB INF Order 03/02: Resp: Vent continuous. Thank you, Diana (This form is maintained as a part of the permanent medical record) 2015 [employer]. All Rights Reserved Diana Watts RN, BSN [email or web address] [facility]
--- NOTE | 2020-03-05 20:41 | RAD ---
CHEST ONE VIEW: 03/05/20 HISTORY: Fever. Extubation. COMPARISON: Radiograph prior day. FINDINGS: Similar appearance right lower lobe air space opacity. Patient has been extubated and the enteric tub e has been removed. Dense calcifications of the aorta. There is a left basilar opacity. IMPRESSION: Bibasilar opacities post extubation. POS: HOME
[2020-03-05] MEDS: Acetaminophen 325 MG Suppository PR PRN (20:57)
[2020-03-05 21:28] LABS: Bilirubin Negative (Negative); Blood, Urine 2+ (Negative); Clarity Turbid (Clear); Glucose, Urine (Dipstick) Normal (Negative); Leukocyte 75 Leu/uL (Negative); Mucous/LPF 1+ LPF (<2+); Nitrite Negative (Negative); Protein, Urine (Dipstick) 30 mg/dL (Neg-Trace); RBC/HPF Greater than 50 HPF (0-3); Squamous Epithelial 0-3 HPF (0-3); Urobilinogen Normal mg/dL (Less than 2)
[2020-03-05 21:31] LABS: Bacteria/HPF 3+ HPF (None Seen)
[2020-03-05] MEDS: Piperacillin/Tazobactam 4.5 GM in Sodium Chloride 0.9% 100 ML IVPB SCH (23:43)
[2020-03-05] MEDS ORDERED: Piperacillin/Tazobactam 4.5 GM in Sodium Chloride 0.9% 100 ML IVPB SCH (23:59)
[2020-03-06] MEDS: Morphine 4 MG/ML VIAL SLOW IVP PRN ×4 (03:06→20:01)
[2020-03-06] MEDS: Lorazepam 2 MG/ML VIAL SLOW IVP PRN ×4 (04:38→23:13)
[2020-03-06] MEDS: Piperacillin/Tazobactam 4.5 GM in Sodium Chloride 0.9% 100 ML IVPB SCH ×4 (06:00→23:11)
--- NOTE | 2020-03-06 07:10 | PDOC.FM ---
- Subjective Subjective: Overnight, patient had a fever of 102.3. The patient was re-cultured, UA showed infection and was started on antibiotics. This morning, patient is resting, comfortably in bed. Patient non verbal. No concerns per nursing. - Objective MAR Reviewed: Yes Vital Signs & Weight: Vital Signs (12 hours) Temp Pulse Resp BP Pulse Ox 03/05/20 23:55 98.4 F 113 H 20 03/05/20 20:00 102.3 F H 125 H 22 H 139/79 97 Weight Admit Weight 75.999 kg Weight 76.5 kg Most Recent Monitor Data Heart Rate from ECG 117 NIBP 188/112 NIBP BP-Mean 137 Respiration from ECG 27 SpO2 100 I&O: 03/05/20 03/06/20 03/07/20 06:59 06:59 06:59 Intake Total 740 Output Total 1250 970 Balance -510 -970 Result Diagrams: 03/05/20 05:35 03/05/20 05:35 Phys Exam - Physical Examination Constitutional: NAD HEENT: moist MMs Neck: full ROM rhonchi heard on expiration Cardiovascular: RRR Gastrointestinal: soft Musculoskeletal: no edema Neurological: moves all 4 limbs Skin: no rash, normal turgor, cap refill <2 seconds Deviation from normal: abrasion on mid chest Dx/Plan (1) Cardiopulmonary arrest with successful resuscitation Code(s): I46.9 - CARDIAC ARREST, CAUSE UNSPECIFIED Status: Acute (2) Person under investigation for COVID-19 Code(s): Z20.828 - CONTACT W AND EXPOSURE TO OTH VIRAL COMMUNICABLE DISEASES Status: Acute (3) Anemia Code(s): D64.9 - ANEMIA, UNSPECIFIED Status: Chronic (4) Cirrhosis Code(s): K74.60 - UNSPECIFIED CIRRHOSIS OF LIVER Status: Chronic (5) Dementia Code(s): F03.90 - UNSPECIFIED DEMENTIA WITHOUT BEHAVIORAL DISTURBANCE Status: Chronic (6) Diabetes mellitus, type II Status: Chronic Qualifiers: Diabetes mellitus terminal carman insulin use: unspecified terminal carman insulin use status (7) Heart failure Code(s): I50.9 - HEART FAILURE, UNSPECIFIED Status: Chronic Qualifiers: Heart failure type: unspecified (8) Hepatitis C Code(s): B19.20 - UNSPECIFIED VIRAL HEPATITIS C WITHOUT HEPATIC COMA Status: Chronic (9) Urinary incontinence Code(s): R32 - UNSPECIFIED URINARY INCONTINENCE Status: Chronic (10) CHF (congestive heart failure) Code(s): I50.9 - HEART FAILURE, UNSPECIFIED Status: Acute - Plan Plan: 79yo male with pmh of DMII, CHF & HTN admitted s/p cardiopulmonary arrest w/ ROSC. Resp cardiac arrest s/p ROSC Patient found down at the half-way after reportedly being found to be severely hypoglycemic & was intubated at half-way by EMS. Source of hypoglycemia unknown as patient was reportedly hyperglycemic earlier in the day 03/01. - Extubated /6 and transitioned to comfort care. Ativan, morphine PRN. Scopolamine for secretions. - CM consulted for dc planning - will need [facility] bed, comfort care. 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 Cirrhosis w/ h/o Hep C - Resume home meds as tolerated Chronic anemia - Continue to monitor OA Urinary incontinence - Tee in place Dementia Constipation - Bowel regimen in place COVID NEGATIVE GI PPX: Famotidine DVT PPX: Lovenox CODE STATUS: DNAR PCP: CC/Skilled Nursing Dispo: awaiting [facility] bed Case discussed with Dr. Berrios Addendum - Attending - Attending Attestation Date/Time: 03/06/20 1310 I personally evaluated the patient and discussed the management with Dr. Menard I agree with the History, Examination, Assessment and Plan documented above with any addition or exceptions noted below - Patient nonverbal. [id number] VSS. A/ P: 1) S/p cardiac arrest with ROSC- now nonverbal; unable to follow commands; previously with out of hospital DNR; now with comfort care. Continue scopalamine for comfort care. 2) UTI- continue abx; await culture. 3) D/c planning- awaiting approval for [facility].
[2020-03-06] MEDS ORDERED: Fleet Enema 133 ML BOT PR SCH (08:15)
[2020-03-06] MEDS: Senokot S 8.6-50 MG TAB PO SCH ×2 (08:49→20:01)
[2020-03-06] MEDS: Polyethylene Glycol 3350 17 GM Packet PER TUBE SCH (08:49)
[2020-03-06] MEDS: Enoxaparin Sodium 40 MG/0.4 ML SYRINGE SC SCH (08:50)
[2020-03-06] MEDS: Famotidine/PF 20 mg/2ml Vial SLOW IVP SCH ×2 (08:50→20:00)
[2020-03-07] MEDS: Morphine 4 MG/ML VIAL SLOW IVP PRN ×5 (01:06→19:51)
[2020-03-07] MEDS: Piperacillin/Tazobactam 4.5 GM in Sodium Chloride 0.9% 100 ML IVPB SCH ×4 (05:47→23:15)
--- NOTE | 2020-03-07 07:24 | PDOC.FM ---
- Subjective Subjective: NAEO. Patient resting comfortably in bed. - Objective MAR Reviewed: Yes Vital Signs & Weight: Vital Signs (12 hours) Temp Pulse Resp BP Pulse Ox 03/06/20 20:00 95 03/06/20 19:34 98.2 F 122 H 20 162/94 H 95 Weight Admit Weight 75.999 kg Weight 76.5 kg Most Recent Monitor Data Heart Rate from ECG 117 NIBP 188/112 NIBP BP-Mean 137 Respiration from ECG 27 SpO2 100 I&O: 03/06/20 03/07/20 03/08/20 06:59 06:59 06:59 Intake Total 220 Output Total 970 550 Balance -970 -330 Result Diagrams: 03/05/20 05:35 03/05/20 05:35 Phys Exam - Physical Examination Constitutional: NAD HEENT: moist MMs, sclera anicteric Neck: supple, full ROM rhonchi present b/l Cardiovascular: RRR mildly TTP, distended, tympanic Musculoskeletal: no edema Neurological: moves all 4 limbs Deviation from normal: not fully cooperative with exam Skin: normal turgor, cap refill <2 seconds Deviation from normal: abrasion on ant. chest Dx/Plan (1) Cardiopulmonary arrest with successful resuscitation Code(s): I46.9 - CARDIAC ARREST, CAUSE UNSPECIFIED Status: Acute (2) Person under investigation for COVID-19 Code(s): Z20.828 - CONTACT W AND EXPOSURE TO OTH VIRAL COMMUNICABLE DISEASES Status: Acute (3) Anemia Code(s): D64.9 - ANEMIA, UNSPECIFIED Status: Chronic (4) Cirrhosis Code(s): K74.60 - UNSPECIFIED CIRRHOSIS OF LIVER Status: Chronic (5) Dementia Code(s): F03.90 - UNSPECIFIED DEMENTIA WITHOUT BEHAVIORAL DISTURBANCE Status: Chronic (6) Diabetes mellitus, type II Status: Chronic Qualifiers: Diabetes mellitus terminal press operator insulin use: unspecified care home insulin use status (7) Heart failure Code(s): I50.9 - HEART FAILURE, UNSPECIFIED Status: Chronic Qualifiers: Heart failure type: unspecified (8) Hepatitis C Code(s): B19.20 - UNSPECIFIED VIRAL HEPATITIS C WITHOUT HEPATIC COMA Status: Chronic (9) Urinary incontinence Code(s): R32 - UNSPECIFIED URINARY INCONTINENCE Status: Chronic (10) CHF (congestive heart failure) Code(s): I50.9 - HEART FAILURE, UNSPECIFIED Status: Acute - Plan Plan: 79yo male with pmh of DMII, CHF & HTN admitted s/p cardiopulmonary arrest w/ ROSC. Resp cardiac arrest s/p ROSC [facility] reportedly being found to be severely hypoglycemic & [facility]. Source of hypoglycemia unknown as patient was reportedly hyperglycemic earlier in the day 5. - Extubated 03/05 and transitioned to comfort care. Ativan, morphine PRN. Scopolamine for secretions. 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 Cirrhosis w/ h/o Hep C - Resume home meds as tolerated Chronic anemia - Continue to monitor OA Urinary incontinence - Tee in place Dementia Constipation - Bowel regimen in place COVID NEGATIVE GI PPX: Famotidine DVT PPX: Lovenox CODE STATUS: DNAR PCP: CC/Skilled Nursing Dispo: awaiting [facility] bed Case discussed with Dr. Berrios Addendum - Attending - Attending Attestation Date/Time: 03/07/20 0922 I personally evaluated the patient and discussed the management with Dr. Menard I agree with the History, Examination, Assessment and Plan documented above with any addition or exceptions noted below - Patient moaning at times. Afebrile VSS. A/P: 1) s/p Cardiac arrest with ROSC- not following commands and non-verbal. Continue comfort measures.
[2020-03-07] MEDS: Polyethylene Glycol 3350 17 GM Packet PER TUBE SCH (08:06)
[2020-03-07] MEDS: Famotidine/PF 20 mg/2ml Vial SLOW IVP SCH ×2 (08:06→20:00)
[2020-03-07] MEDS: Enoxaparin Sodium 40 MG/0.4 ML SYRINGE SC SCH (08:06)
[2020-03-07] MEDS: Senokot S 8.6-50 MG TAB PO SCH ×2 (08:06→19:54)
[2020-03-07] MEDS ORDERED: Bisacodyl 10 MG SUPP PR PRN (09:00)
[2020-03-07] MEDS ORDERED: Fleet Enema 133 ML BOT PR SCH (17:45)
[2020-03-07] MEDS: Lorazepam 2 MG/ML VIAL SLOW IVP PRN ×2 (18:19→23:16)
[2020-03-08] MEDS: Morphine 4 MG/ML VIAL SLOW IVP PRN ×7 (01:57→20:48)
[2020-03-08] MEDS: Piperacillin/Tazobactam 4.5 GM in Sodium Chloride 0.9% 100 ML IVPB SCH ×4 (05:07→23:17)
[2020-03-08] MEDS: Lorazepam 2 MG/ML VIAL SLOW IVP PRN ×6 (05:10→23:22)
--- NOTE | 2020-03-08 06:46 | PDOC.FM ---
- Subjective Subjective: NAEO. Patient resting comfortably in bed. NO concerns per nursing. Patient had a BM yesterday. - Objective MAR Reviewed: Yes Vital Signs & Weight: Vital Signs (12 hours) Temp Pulse Resp BP Pulse Ox 03/07/20 19:50 98.3 F 119 H 29 H 148/93 H 94 L Weight Admit Weight 75.999 kg Weight 76.5 kg Most Recent Monitor Data Heart Rate from ECG 117 NIBP 188/112 NIBP BP-Mean 137 Respiration from ECG 27 SpO2 100 I&O: 03/06/20 03/07/20 03/08/20 06:59 06:59 06:59 Intake Total 220 100 Output Total 970 550 350 Balance -970 -330 -250 Result Diagrams: 03/05/20 05:35 03/05/20 05:35 Phys Exam - Physical Examination Constitutional: NAD HEENT: sclera anicteric Neck: supple, full ROM rhonchi b/l; using accessory muscles Cardiovascular: RRR Gastrointestinal: soft Musculoskeletal: no edema Neurological: moves all 4 limbs Deviation from normal: not conversative Skin: no rash, normal turgor, cap refill <2 seconds Dx/Plan (1) Cardiopulmonary arrest with successful resuscitation Code(s): I46.9 - CARDIAC ARREST, CAUSE UNSPECIFIED Status: Acute (2) Person under investigation for COVID-19 Code(s): Z20.828 - CONTACT W AND EXPOSURE TO OTH VIRAL COMMUNICABLE DISEASES Status: Acute (3) Anemia Code(s): D64.9 - ANEMIA, UNSPECIFIED Status: Chronic (4) Cirrhosis Code(s): K74.60 - UNSPECIFIED CIRRHOSIS OF LIVER Status: Chronic (5) Dementia Code(s): F03.90 - UNSPECIFIED DEMENTIA WITHOUT BEHAVIORAL DISTURBANCE Status: Chronic (6) Diabetes mellitus, type II Status: Chronic Qualifiers: Diabetes mellitus [facility] insulin use: unspecified vermin exterminator insulin use status (7) Heart failure Code(s): I50.9 - HEART FAILURE, UNSPECIFIED Status: Chronic Qualifiers: Heart failure type: unspecified (8) Hepatitis C Code(s): B19.20 - UNSPECIFIED VIRAL HEPATITIS C WITHOUT HEPATIC COMA Status: Chronic (9) Urinary incontinence Code(s): R32 - UNSPECIFIED URINARY INCONTINENCE Status: Chronic (10) CHF (congestive heart failure) Code(s): I50.9 - HEART FAILURE, UNSPECIFIED Status: Acute - Plan Plan: 79yo male with pmh of DMII, CHF & HTN admitted s/p cardiopulmonary arrest w/ ROSC. Resp cardiac arrest s/p ROSC [facility] being found to be severely [facility]cemic & [facility]. Source of hypoglycemia unknown as patient was reportedly hyperglycemic earlier in the day 5. - Extubated 03/05 and transitioned to comfort care. Ativan, morphine PRN. Scopolamine for secretions. 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 Berrios Addendum - Attending - Attending Attestation Date/Time: 03/08/20 0653 I personally evaluated the patient and discussed the management with Dr. Menard I agree with the History, Examination, Assessment and Plan documented above with any addition or exceptions noted below- Patient in NAD; abdominal breathing. Afebrile VSS. A/P: 1) S/p cardiac arrest with ROSC- continue comfort care. 2) Ischemic cardiomyopathy - stable. 3) D/c planning - awaiting placement at [facility]
[2020-03-08] MEDS: Polyethylene Glycol 3350 17 GM Packet PER TUBE SCH (08:44)
[2020-03-08] MEDS: Senokot S 8.6-50 MG TAB PO SCH ×2 (08:45→20:47)
[2020-03-08] MEDS: Acetaminophen 325 MG Suppository PR PRN (21:09)
[2020-03-09] MEDS: Morphine 4 MG/ML VIAL SLOW IVP PRN ×3 (05:15→20:12)
--- NOTE | 2020-03-09 07:15 | PDOC.FM ---
- Subjective Subjective: Overnight, patient fevered to 101.4F and given tylenol. Patient resting peacefully in bed. NO concerns per nursing. Patient non verbal. - Objective MAR Reviewed: Yes Vital Signs & Weight: Vital Signs (12 hours) Temp Pulse Resp BP Pulse Ox 03/09/20 05:00 98.8 F 03/09/20 00:00 99.2 F 03/08/20 20:33 95 03/08/20 20:00 101.4 F H 95 18 145/61 H 93 L Weight Admit Weight 75.999 kg Weight 76.5 kg Most Recent Monitor Data Heart Rate from ECG 117 NIBP 188/112 NIBP BP-Mean 137 Respiration from ECG 27 SpO2 100 I&O: 03/08/20 03/09/20 03/10/20 06:59 06:59 06:59 Intake Total 100 150 Output Total 350 675 Balance -250 -525 Result Diagrams: 03/05/20 05:35 03/05/20 05:35 Phys Exam - Physical Examination Constitutional: NAD dry MM Neck: supple rhonchi b/l; accessory muscle use Cardiovascular: RRR Gastrointestinal: soft Neurological: non-focal Deviation from normal: non verbal Skin: no rash, normal turgor, cap refill <2 seconds Dx/Plan (1) Cardiopulmonary arrest with successful resuscitation Code(s): I46.9 - CARDIAC ARREST, CAUSE UNSPECIFIED Status: Acute (2) Person under investigation for COVID-19 Code(s): Z20.828 - CONTACT W AND EXPOSURE TO OTH VIRAL COMMUNICABLE DISEASES Status: Acute (3) Anemia Code(s): D64.9 - ANEMIA, UNSPECIFIED Status: Chronic (4) Cirrhosis Code(s): K74.60 - UNSPECIFIED CIRRHOSIS OF LIVER Status: Chronic (5) Dementia Code(s): F03.90 - UNSPECIFIED DEMENTIA WITHOUT BEHAVIORAL DISTURBANCE Status: Chronic (6) Diabetes mellitus, type II Status: Chronic Qualifiers: Diabetes mellitus [facility] insulin use: unspecified rat exterminator insulin use status (7) Heart failure Code(s): I50.9 - HEART FAILURE, UNSPECIFIED Status: Chronic Qualifiers: Heart failure type: unspecified (8) Hepatitis C Code(s): B19.20 - UNSPECIFIED VIRAL HEPATITIS C WITHOUT HEPATIC COMA Status: Chronic (9) Urinary incontinence Code(s): R32 - UNSPECIFIED URINARY INCONTINENCE Status: Chronic (10) CHF (congestive heart failure) Code(s): I50.9 - HEART FAILURE, UNSPECIFIED Status: Acute - Plan Plan: 79yo male with pmh of DMII, CHF & HTN admitted s/p cardiopulmonary arrest w/ ROSC. Resp cardiac arrest s/p ROSC [facility] after reportedly being found to be severely hypoglycemic & [facility] by EMS. Source of hypoglycemia unknown as patient was reportedly hyperglycemic earlier in the day 03/01. - Extubated 03/05 and transitioned to comfort care. Ativan, morphine PRN. Scopolamine for secretions. 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 Brerios Addendum - Attending - Attending Attestation Date/Time: 03/09/20 4353 I personally evaluated the patient and discussed the management with Dr. Menard I agree with the History, Examination, Assessment and Plan documented above with any addition or exceptions noted below - Patient not responsive; Tm 101.4 P 95-130 A/P: 1) S/p cardiac arrest with ROSC - continue comfort care. 2) D/c planning- awaiting acceptance by [facility]
[2020-03-09] MEDS: Lorazepam 2 MG/ML VIAL SLOW IVP PRN ×2 (08:37→20:14)
[2020-03-09] MEDS: Polyethylene Glycol 3350 17 GM Packet PER TUBE SCH (08:57)
[2020-03-09] MEDS: Senokot S 8.6-50 MG TAB PO SCH ×2 (08:57→19:58)
[2020-03-09] MEDS: Acetaminophen 325 MG Suppository PR PRN (20:20)
[2020-03-10] MEDS: Lorazepam 2 MG/ML VIAL SLOW IVP PRN ×3 (00:13→08:02)
[2020-03-10] MEDS: Morphine 4 MG/ML VIAL SLOW IVP PRN ×3 (00:13→08:03)
[2020-03-10] MEDS: Scopolamine 1.5 mg/72 hour Patch TD PRN (05:02)
--- NOTE | 2020-03-10 07:22 | PDOC.FM ---
- Subjective Subjective: pt resting in bed, at baseline per previous reports. not in distress, non verbal - Objective Vital Signs & Weight: Vital Signs (12 hours) Temp Pulse Resp BP Pulse Ox 03/10/20 00:10 98.5 F 03/09/20 20:00 101.8 F H 128 H 22 H 136/73 91 L Weight Admit Weight 75.999 kg Weight 76.5 kg Most Recent Monitor Data Heart Rate from ECG 117 NIBP 188/112 NIBP BP-Mean 137 Respiration from ECG 27 SpO2 100 I&O: 03/09/20 03/10/20 03/11/20 06:59 06:59 06:59 Intake Total 150 30 Output Total 675 700 Balance -525 -670 Result Diagrams: 03/05/20 05:35 03/05/20 05:35 Phys Exam - Physical Examination Constitutional: NAD HEENT: moist MMs Neck: no JVD Gastrointestinal: no distention Musculoskeletal: no edema Skin: no rash Dx/Plan (1) Dementia Code(s): F03.90 - UNSPECIFIED DEMENTIA WITHOUT BEHAVIORAL DISTURBANCE Status: Chronic (2) Diabetes mellitus, type II Status: Chronic Qualifiers: Diabetes mellitus [facility] insulin use: unspecified termite technician insulin use status (3) Heart failure Code(s): I50.9 - HEART FAILURE, UNSPECIFIED Status: Chronic Qualifiers: Heart failure type: unspecified (4) Hepatitis C Code(s): B19.20 - UNSPECIFIED VIRAL HEPATITIS C WITHOUT HEPATIC COMA Status: Chronic - Plan Plan: Resp cardiac arrest s/p ROSC [facility] after reportedly being found to be severely hypoglycemic & [facility]. Source of hypoglycemia unknown as patient was reportedly hyperglycemic earlier in the day 03/01. - Extubated 03/05 and transitioned to comfort care. Ativan, morphine PRN. Scopolamine for secretions. - CM consulted for dc planning - Awaiting [facility] bed CAUTI, resolved - UA showing leukocytes, bacteria, turbid on 03/05 - Adequately treated with zosyn - Tylenol PRN for fever IDDMII - SSI available Combined HF (EF 15-20% per February 2019 ECHO) - daily weight, I/Os Cirrhosis w/ h/o Hep C - Resume home meds as tolerated Chronic anemia - Continue to monitor OA Urinary incontinence - Tee in place Dementia Constipation - Bowel regimen in place COVID NEGATIVE GI PPX: Famotidine DVT PPX: Lovenox CODE STATUS: DNAR Dispo: awaiting [facility] bed, CM working on paperwork Addendum - Attending - Attending Attestation Date/Time: 03/10/20 4392 I personally evaluated the patient and discussed the management with Dr. Bonner. I agree with the History, Examination, Assessment and Plan documented above with any addition or exceptions noted below. Did not see, patient this morning.
[2020-03-10 07:46] VITALS: BP 110/67
[2020-03-10 08:08] VITALS: TEMP 103
[2020-03-10] MEDS: Polyethylene Glycol 3350 17 GM Packet PER TUBE SCH (09:15)
[2020-03-10] MEDS: Senokot S 8.6-50 MG TAB PO SCH (09:16)
--- NOTE | 2020-03-10 11:55 | PDOC.BPN ---
- Brief Progress Note Progress Note of : PE: HEENT: pupils fixed and dilated Card: No pulse, no auscultated heart sounds Resp: No spontaneous respirations Neuro: No withdrawal to painful stimuli TOD: 0942 03/10/2020 exact time was confirmed The family does not request an autopsy. Orders: 1. TOD 0942 2. Ok to remove all lines 3. Ok to release to shearer screen measurer and trimmer
--- NOTE | 2020-03-13 02:20 | DIS ---
DATE OF ADMISSION: 03/02/2020 DATE OF DISCHARGE: 03/10/2020 TIME OF : 0942 hours. CAUSE OF : anoxic brain injury, congestive heart failure exacerbation. SECONDARY DIAGNOSES: 1. Catheter associated urinary tract infection. 2. Insulin-dependent diabetes mellitus, type 2. 3. Cirrhosis with hep C. 4. Chronic anemia. 5. Osteoarthritis. 6. Dementia. 7. COVID ruled out. HOSPITAL COURSE: This is a 79-year-old male with a past medical history significant for the above, found unresponsive and presented earlier today. It was noted that he was given insulin prior and then was found down with the glucose level of 30, unconscious at that time. CPR was began. EMS reports CPR throughout ambulance ride to the hospital. ROSC was achieved. The patient was intubated and started on Levophed drip. The patient remained intubated and sedated on sedation holidays with minimally responsive, eventually was determined by the family that patient would wish to be compassionately extubated. The patient was transitioned to comfort care measures in our hospital awaiting a hospice bed at [facility] when the patient . Job ID: [id number] MTDD
--- NOTE | 2020-03-13 16:20 | EKG ---
Test Reason : Blood Pressure : / mmHG Vent. Rate : 065 BPM Atrial Rate : 065 BPM P-R Int : 168 ms QRS Dur : 102 ms QT Int : 536 ms P-R-T Axes : 076 -34 -69 degrees QTc Int : 557 ms Normal sinus rhythm Left axis deviation Low voltage QRS Inferior infarct , age undetermined Prolonged QT No STEMI Abnormal ECG Confirmed by CAIN LEE M.D. ([id number]), dictionary editor ANETA TUCKER ([id number]) on 03/13/2020 4:19:59 PM Referred By: Confirmed By:CAIN LEE M.D.
== END 2020-03-10 09:42 | disposition expired | DRG 637 ==
LOC: ERS 00:45 → EEVIPCON 02:27 → CCU 02:27 → T4-B 03-04 13:42
PROVIDERS: ADMIT Family Medicine; ATTEND Family Medicine
PROC: 5A1945Z Respiratory Ventilation, 24-96 Consecutive Hours (ICD-10-PCS; principal; 2020-03-02)
PROC: 3E033XZ Introduction of Vasopressor into Peripheral Vein, Percutaneous Approach (ICD-10-PCS; 2020-03-02)
PROC: 8E0ZXY6 Isolation (ICD-10-PCS; 2020-03-02)
DX: E11.649 Type 2 diabetes mellitus with hypoglycemia without coma (principal); J96.01 Acute respiratory failure with hypoxia; T83.518A Infection and inflammatory reaction due to other urinary catheter, initial encounter; N39.0 Urinary tract infection, site not specified; I50.43 Acute on chronic combined systolic (congestive) and diastolic (congestive) heart failure; I42.8 Other cardiomyopathies; Z66 Do not resuscitate; Z51.5 Encounter for palliative care; I11.0 Hypertensive heart disease with heart failure; I46.8 Cardiac arrest due to other underlying condition; R40.2312 Coma scale, best motor response, none, at arrival to emergency department; R40.2122 Coma scale, eyes open, to pain, at arrival to emergency department; R40.2212 Coma scale, best verbal response, none, at arrival to emergency department; G93.1 Anoxic brain damage, not elsewhere classified; Z20.828 Contact with and (suspected) exposure to other viral communicable diseases; B18.2 Chronic viral hepatitis C; F03.90 Unspecified dementia, unspecified severity, without behavioral disturbance, psychotic disturbance, mood disturbance, and anxiety; M19.90 Unspecified osteoarthritis, unspecified site; R32 Unspecified urinary incontinence; K74.60 Unspecified cirrhosis of liver; D64.89 Other specified anemias; I34.0 Nonrheumatic mitral (valve) insufficiency; K59.00 Constipation, unspecified; Y84.6 Urinary catheterization as the cause of abnormal reaction of the patient, or of later complication, without mention of misadventure at the time of the procedure; Z79.899 Other long term (current) drug therapy; Z79.82 Long term (current) use of aspirin; Z79.4 Long term (current) use of insulin; Z78.1 Physical restraint status
CPT/HCPCS: 36415; 36416; 36556; 71045; 80048; 80053; 80306; 81001; 82553; 82728; 82805; 83605; 83615; 83735; 84100; 84145; 84484; 85025; 85379; 85610; 85730; 86140; 87040; 87086; 87635; 93005; 93306; 94003; 96365; 96366; J1650; J2060; J2270; J2543; J2704; J3370; J3475; J3490; J7050; S0028; U0003